=== PATIENT | female | born 1990 | race Caucasian/White ===

== ENCOUNTER 2020-11-11 22:18 | Emergency (ER) | payer BC ==
[2020-11-11] MEDS ORDERED: Zofran 4 MG/2 ML VIAL IV ONE (22:50)
[2020-11-11] MEDS ORDERED: Sodium Chloride 0.9% 1000 ML 1,000 ML IV STA (22:50)
[2020-11-11] MEDS ORDERED: TYLENOL 325 MG PO ONE (22:50)
[2020-11-11] MEDS ORDERED: Sodium Chloride 0.9% 1000 ML 1,000 ML ONE (23:03)
[2020-11-11] MEDS ORDERED: Zofran 4 MG/2 ML VIAL ONE (23:03)
[2020-11-11] MEDS ORDERED: TYLENOL 325 MG ONE (23:03)
[2020-11-11 23:09] LABS: Hematocrit 39.7 % (35-47); Mean Cell Volume 86.1 fl (78-100); Mean Corpuscular Hemoglobin 28.2 pg (26-32); Mean Corpuscular Hgb Concent. 32.7 g/dl (32-36); Mean Platelet Volume 10.6 fl (7.5-11.0); Platelet Count 311 K/mm3 (150-450); Red Blood Count 4.61 M/mm3 (4.1-5.4); Red Cell Distribution Width 12.9 % (11.5-14.0); White Blood Count 14.3 K/mm3 (4.0-10.5)
--- NOTE | 2020-11-11 23:30 | ERPHSYRPT ---
- History of Present Illness Time Seen by Provider: 11/11/20 22:28 Source: patient Exam Limitations: no limitations Patient Subjective Stated Complaint: Patient states " I have been sick for about 5 days and I just can't seem to kick whatever is going on. I live by myself and I'm just concerned. I have been having headaches, vomiting, and have no appetite. [facility] but they didn't really help me and they only swabbed me for COVID-19. I am just concerned at this point why I'm not feeling any better." Triage Nursing Assessment: Patient arrived to ED and ambulated back to room without difficulty. Patient A/O times 4. Patient able to make wants and needs known. Patient able to follow instructions without difficulty. Lungs clear bilateral A/P throughout. Patient denies any SOB. Patient denies any chest pain. Respiratory regular and easy and non-labored. Cap refill < 3 seconds. No S/S of respiratory distress noted. + BS times 4 quads. ABD soft, round, non-distended. Patient denies any pain or discomfort upon palpitations. Patient stated she started vomiting today and her appetite has been nothing last couple of days. Oral mucosa moist, pink. Skin turgor < 3 seconds. Patient complains of having pain in and all over her head. Patient with no dependent edema noted. + Radial and pedal pulses noted bilateral. Patient denies having any diizziness or loose stools. Patient stated she had BM 6 days ago but she also hasn't been eating either. Patient denies any Cardiac HX. Patient with N/V and patient states she has vomitied 6 times today and it is yellow in color. Patient denies vomiting any blood or coffee ground emesis. Central color pale. Patient denies any trauma or injury to head. Patient states she had a fever > 103.0 on Tuesday at home. Patient stated she did go to [facility] this am. Physician History: 30 years old healthy female presented in the ER with 5-day history of off-and-on fever with a T-max of 103.6 few days ago, have been using Tylenol/ibuprofen for symptomatic relief but does not seem to go away. She is complaining of generalized body ache, headache, generalized weakness fatigue. She was seen at urgent care today, Covid testing was done. She also reports multiple episodes of nonprojectile, nonbilious vomiting today without any associated significant abdominal pain. Denies any urinary symptoms. Does not have Covid vaccine yet. Timing/Duration: day(s) (5), gradual onset, worse Fever Severity: moderate Fever Therapy MARINATOR: Ibuprofen, Acetaminophen Associated Symptoms: headache, muscle aches, nausea/vomiting, weakness, No abdominal pain, No chest pain, No confusion, No cough, No shortness of breath, No sore throat Allergies/Adverse Reactions: No Known Drug Allergies Allergy (Unverified 11/11/20 22:30) Home Medications: Dextroamphetamine/Amphetamine [Adderall 20 mg Tablet] 20 mg PO DAILY 11/11/20 [History] Fluoxetine HCl 20 mg [Prozac 20 MG] 20 mg PO DAILY 11/11/20 [History] Hx Tetanus, Diphtheria Vaccination/Date Given: Yes Hx Influenza Vaccination/Date Given: Yes Hx Pneumococcal Vaccination/Date Given: No Immunizations Up to Date: Yes Travel Risk - International Travel Have you traveled outside of the country in past 3 weeks: No - Coronavirus Screening Symptoms: Fever, Vomiting/Diarrhea, Headaches/Body Aches/Fatigue Close contact with a COVID-19 positive Pt in past 14-21 Days: No - Vaccine Status Have you recieved a Covid-19 vaccination: No - Review of Systems Constitutional: Fever, Chills, Fatigue, Weakness Eyes: No Symptoms Ears, Nose, & Throat: No Symptoms Respiratory: No Symptoms Cardiac: No Symptoms Abdominal/Gastrointestinal: Nausea, Vomiting Genitourinary Symptoms: No Symptoms Musculoskeletal: Myalgias Skin: No Symptoms Neurological: Headache Psychological: No Symptoms Endocrine: No Symptoms Hematologic/Lymphatic: No Symptoms Immunological/Allergic: No Symptoms - Past Medical History Pertinent Past Medical History: No Neurological History: No Pertinent History ENT History: No Pertinent History Cardiac History: No Pertinent History Respiratory History: No Pertinent History Endocrine Medical History: No Pertinent History Musculoskeletal History: No Pertinent History GI Medical History: No Pertinent History History: No Pertinent History Psycho-Social History: Attention Deficit Disorder, Depression Female Reproductive Disorders: No Pertinent History - Past Surgical History Past Surgical History: No Neuro Surgical History: No Pertinent History Cardiac: No Pertinent History Respiratory: No Pertinent History Gastrointestinal: No Pertinent History Genitourinary: No Pertinent History Musculoskeletal: No Pertinent History Female Surgical History: No Pertinent History - Social History Smoking Status: Never smoker How long have you smoked: 8 yrs Exposure to second hand smoke: No Drug Use: none Patient Lives Alone: Yes - Female History Hx Now: (unkn) - Nursing Vital Signs Nursing Vital Signs: Initial Vital Signs Temperature 100.9 F 11/11/20 22:28 Pulse Rate 103 H 11/11/20 22:28 Respiratory Rate 20 11/11/20 22:28 Blood Pressure 121/80 11/11/20 22:28 O2 Sat by Pulse Oximetry 96 11/11/20 22:28 Pain Scale Pain Intensity 3 - Physical Exam General Appearance: no apparent distress, alert, anxiety Eye Exam: PERRL/EOMI, eyes nml inspection ENT Exam: no apparent trauma, hearing grossly normal, pharyngeal erythema Neck Exam: normal inspection, non-tender, supple, full range of motion Respiratory Exam: normal breath sounds, chest non-tender, lungs clear Cardiovascular/Chest Exam: normal heart sounds, regular rate/rhythm Gastrointestinal/Abdominal Exam: soft, non tender, no distention, no mass, no guarding Extremity Exam: non-tender, normal range of motion, normal inspection Neurologic Exam: alert, oriented x 3, cooperative, 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 as tested Skin Exam: normal color SpO2 Interpretation: normal SpO2: 97 O2 Delivery: Room Air Ordered Tests: Active Orders 24 hr Category Date Time Status IV Insertion STAT Care 11/11/20 22:50 Active NPO (ED) STAT Care 11/11/20 22:50 Active OBSTR/ACUTE ABDOMEN SERIES Stat Exams 11/11/20 23:13 Taken BLOOD CULTURE Stat Lab 11/11/20 23:06 Received CBC W DIFF Stat Lab 11/11/20 23:04 Completed CMP Stat Lab 11/11/20 23:04 Completed CULTURE,URINE Stat Lab 11/11/20 23:20 Received HCG,QUALITATIVE URINE Stat Lab 11/11/20 23:20 Completed INFLUENZA A+B CARMENZA Stat Lab 11/11/20 23:06 Completed LIPASE Stat Lab 11/11/20 23:04 Completed Lactic Acid Stat Lab 11/11/20 22:50 Completed Manual Differential NC Stat Lab 11/11/20 23:04 Completed UA W/RFX UR CULTURE Stat Lab 11/11/20 23:20 Completed Medication Summary Discontinued Medications Generic Name Dose Route Start Last Admin Trade Name Freq PRN Reason Stop Dose Admin Acetaminophen 975 mg 11/11/20 22:50 11/11/20 23:17 Tylenol 325 Mg PO 11/11/20 22:51 975 mg STAT ONE Administration Acetaminophen Confirm 11/11/20 23:03 Tylenol 325 Mg Administered 11/11/20 23:04 Dose 975 mg .ROUTE .STK-MED ONE Amoxicillin/Clavulanate Potassium 875 mg 11/11/20 23:51 11/11/20 23:58 Augmentin 875-125 Tablet PO 11/11/20 23:52 875 mg STAT ONE Administration Amoxicillin/Clavulanate Potassium Confirm 11/11/20 23:56 Augmentin 875-125 Tablet Administered 11/11/20 23:57 Dose 875 mg .ROUTE .STK-MED ONE Sodium Chloride 1,000 mls @ 999 mls/hr 11/11/20 22:50 11/11/20 23:17 Sodium Chloride 0.9% 1000 Ml IV 11/11/20 23:50 999 mls/hr .Q1H1M STA Administration Sodium Chloride Confirm 11/11/20 23:03 Sodium Chloride 0.9% 1000 Ml Administered 11/11/20 23:04 Dose 1,000 mls @ ud .ROUTE .STK-MED ONE Morphine Sulfate 4 mg 11/12/20 00:08 11/12/20 00:15 Morphine Sulfate 4 Mg Inj IV 11/12/20 00:09 4 mg STAT ONE Administration Morphine Sulfate Confirm 11/12/20 00:14 Morphine Sulfate 4 Mg Inj Administered 11/12/20 00:15 Dose 4 mg .ROUTE .STK-MED ONE Ondansetron HCl 4 mg 11/11/20 22:50 11/11/20 23:17 Zofran 4 Mg/2 Ml Vial IV 11/11/20 22:51 4 mg STAT ONE Administration Ondansetron HCl Confirm 11/11/20 23:03 Zofran 4 Mg/2 Ml Vial Administered 11/11/20 23:04 Dose 4 mg .ROUTE .STK-MED ONE Lab/Rad Data: Laboratory Result Diagrams 11/11/20 23:04 11/11/20 23:04 Laboratory Results 11/11/20 11/11/20 11/11/20 Range/Units 23:20 23:20 23:06 WBC (4.0-10.5) K/mm3 RBC (4.1-5.4) M/mm3 Hgb (12.0-16.0) gm/dl Hct (35-47) % MCV (78-100) fl MCH (26-32) pg MCHC (32-36) g/dl RDW (11.5-14.0) % Plt Count (150-450) K/mm3 MPV (7.5-11.0) fl Segmented Neutrophils (36.0-66.0) % Band Neutrophils (0.0-2.0) % Lymphocytes (Manual) (24-44) % Monocytes (Manual) (0.0-12.0) % Dohle Bodies Platelet Estimate (NORMAL) RBC Morphology Sodium (137-145) mmol/L Potassium (3.5-5.1) mmol/L Chloride (98-107) mmol/L Carbon Dioxide (22-30) mmol/L Anion Gap (5-15) MEQ/L BUN (7-17) mg/dL Creatinine (0.52-1.04) mg/dL Estimated GFR ML/MIN Glucose (74-106) mg/dL Lactic Acid (0.4-2.0) Calcium (8.4-10.2) mg/dL Total Bilirubin (0.2-1.3) mg/dL AST (14-36) U/L ALT (0-35) U/L Alkaline Phosphatase (38-126) U/L Serum Total Protein (6.3-8.2) g/dL Albumin (3.5-5.0) g/dL Lipase (23-300) U/L Urine Color YELLOW (YELLOW) Urine Appearance SLIGHTLY CLOUDY (CLEAR) Urine pH 7.0 (5-6) Ur Specific [place] 1.014 (1.005-1.025) Urine Protein 100 (Negative) Urine Ketones TRACE (NEGATIVE) Urine Blood MODERATE (0-5) Jorge Luis/ul Urine Nitrite POSITIVE (NEGATIVE) Urine Bilirubin NEGATIVE (NEGATIVE) Urine Urobilinogen 4 (0-1) mg/dL Ur Leukocyte Esterase TRACE (NEGATIVE) Urine WBC (Auto) 11-15 (0-5) /HPF Urine RBC (Auto) 16-25 (0-2) /HPF U Epithel Cells (Auto) NONE (FEW) /HPF Urine Bacteria (Auto) MODERATE (NEGATIVE) /HPF Urine Mucus (Auto) SLIGHT (NEGATIVE) /HPF Urine Culture Reflexed YES (NO) Urine Glucose NEGATIVE (NEGATIVE) mg/dL Urine HCG, Qual NEGATIVE (Negative) Influenza Type A Ag (NEGATIVE) Influenza Type B Ag (NEGATIVE) Group A Strep Antibody DETECTED (NEGATIVE) 11/11/20 11/11/20 11/11/20 Range/Units 23:06 23:04 23:04 WBC 14.3 H (4.0-10.5) K/mm3 RBC 4.61 (4.1-5.4) M/mm3 Hgb 13.0 (12.0-16.0) gm/dl Hct 39.7 (35-47) % MCV 86.1 (78-100) fl MCH 28.2 (26-32) pg MCHC 32.7 (32-36) g/dl RDW 12.9 (11.5-14.0) % Plt Count 311 (150-450) K/mm3 MPV 10.6 (7.5-11.0) fl Segmented Neutrophils 54 (36.0-66.0) % Band Neutrophils 30 H (0.0-2.0) % Lymphocytes (Manual) 12 L (24-44) % Monocytes (Manual) 4 (0.0-12.0) % Dohle Bodies 1+ Platelet Estimate NORMAL (NORMAL) RBC Morphology NORMAL Sodium 132 L (137-145) mmol/L Potassium 3.4 L (3.5-5.1) mmol/L Chloride 97 L (98-107) mmol/L Carbon Dioxide 25 (22-30) mmol/L Anion Gap 13.0 (5-15) MEQ/L BUN 6 L (7-17) mg/dL Creatinine 0.67 (0.52-1.04) mg/dL Estimated GFR > 60.0 ML/MIN Glucose 93 (74-106) mg/dL Lactic Acid (0.4-2.0) Calcium 8.8 (8.4-10.2) mg/dL Total Bilirubin 0.60 (0.2-1.3) mg/dL AST 23 (14-36) U/L ALT 36 H (0-35) U/L Alkaline Phosphatase 95 (38-126) U/L Serum Total Protein 7.5 (6.3-8.2) g/dL Albumin 3.9 (3.5-5.0) g/dL Lipase 73 (23-300) U/L Urine Color (YELLOW) Urine Appearance (CLEAR) Urine pH (5-6) Ur Specific [place] (1.005-1.025) Urine Protein (Negative) Urine Ketones (NEGATIVE) Urine Blood (0-5) Jorge Luis/ul Urine Nitrite (NEGATIVE) Urine Bilirubin (NEGATIVE) Urine Urobilinogen (0-1) mg/dL Ur Leukocyte Esterase (NEGATIVE) Urine WBC (Auto) (0-5) /HPF Urine RBC (Auto) (0-2) /HPF U Epithel Cells (Auto) (FEW) /HPF Urine Bacteria (Auto) (NEGATIVE) /HPF Urine Mucus (Auto) (NEGATIVE) /HPF Urine Culture Reflexed (NO) Urine Glucose (NEGATIVE) mg/dL Urine HCG, Qual (Negative) Influenza Type A Ag NEGATIVE (NEGATIVE) Influenza Type B Ag NEGATIVE (NEGATIVE) Group A Strep Antibody (NEGATIVE) 11/11/20 Range/Units 22:50 WBC (4.0-10.5) K/mm3 RBC (4.1-5.4) M/mm3 Hgb (12.0-16.0) gm/dl Hct (35-47) % MCV (78-100) fl MCH (26-32) pg MCHC (32-36) g/dl RDW (11.5-14.0) % Plt Count (150-450) K/mm3 MPV (7.5-11.0) fl Segmented Neutrophils (36.0-66.0) % Band Neutrophils (0.0-2.0) % Lymphocytes (Manual) (24-44) % Monocytes (Manual) (0.0-12.0) % Dohle Bodies Platelet Estimate (NORMAL) RBC Morphology Sodium (137-145) mmol/L Potassium (3.5-5.1) mmol/L Chloride (98-107) mmol/L Carbon Dioxide (22-30) mmol/L Anion Gap (5-15) MEQ/L BUN (7-17) mg/dL Creatinine (0.52-1.04) mg/dL Estimated GFR ML/MIN Glucose (74-106) mg/dL Lactic Acid 1.1 (0.4-2.0) Calcium (8.4-10.2) mg/dL Total Bilirubin (0.2-1.3) mg/dL AST (14-36) U/L ALT (0-35) U/L Alkaline Phosphatase (38-126) U/L Serum Total Protein (6.3-8.2) g/dL Albumin (3.5-5.0) g/dL Lipase (23-300) U/L Urine Color (YELLOW) Urine Appearance (CLEAR) Urine pH (5-6) Ur Specific [place] (1.005-1.025) Urine Protein (Negative) Urine Ketones (NEGATIVE) Urine Blood (0-5) Jorge Luis/ul Urine Nitrite (NEGATIVE) Urine Bilirubin (NEGATIVE) Urine Urobilinogen (0-1) mg/dL Ur Leukocyte Esterase (NEGATIVE) Urine WBC (Auto) (0-5) /HPF Urine RBC (Auto) (0-2) /HPF U Epithel Cells (Auto) (FEW) /HPF Urine Bacteria (Auto) (NEGATIVE) /HPF Urine Mucus (Auto) (NEGATIVE) /HPF Urine Culture Reflexed (NO) Urine Glucose (NEGATIVE) mg/dL Urine HCG, Qual (Negative) Influenza Type A Ag (NEGATIVE) Influenza Type B Ag (NEGATIVE) Group A Strep Antibody (NEGATIVE) - Progress Progress: improved, re-examined Progress Note: 11/12/20 00:42 Given fluid bolus and Zofran along with morphine, on reevaluation feeling much better. She has a white count of 14, mildly low sodium and chloride. No definitive UTI. She does have positive strep throat given Augmentin. We will continue with Augmentin and Zofran to go home. Elevated white count could be reactive from vomiting. X-rays did not show any acute findings in the chest and abdomen but does have constipation. Recommended stool softener. Discussed signs symptoms of worsening needing return to ER which he seems understanding. Stable for discharge. Counseled pt/family regarding: lab results, diagnosis, need for follow-up, rad results - Departure Departure Disposition: Home Clinical Impression: Acute streptococcal pharyngitis Nausea & vomiting Qualifiers: Vomiting type: unspecified Vomiting Intractability: non-intractable Qualified Code(s): R11.2 - Nausea with vomiting, unspecified Constipation Qualifiers: Constipation type: unspecified constipation type Qualified Code(s): K59.00 - Constipation, unspecified Condition: Stable Critical Care Time: No Referrals: ROSEMARY DEL TORO NP [Primary Care Provider] - (1-2 days for reevaluation) Instructions: Nausea and Vomiting, Adult (DC) Additional Instructions: Use MiraLAX/stool softener. Use Tylenol/ibuprofen as needed. Take Zofran as needed for nausea vomiting. Continue with Augmentin. Contact/droplet precautions until your Covid test is back. Follow-up with primary care physician for reevaluation. Return to ER for any worsening. Prescriptions: Ondansetron ODT 4 MG [Zofran Odt 4 mg] 4 mg PO Q6H PRN PRN #10 tab.rapdis PRN Reason: Vomiting Amox Tr/Potass Clav. 875 mg [Augmentin 875-125 Tablet] 875 mg PO BID 10 Days #19 tablet
[2020-11-11 23:37] LABS: INFLUENZA A NEGATIVE (NEGATIVE); INFLUENZA B NEGATIVE (NEGATIVE)
[2020-11-11 23:45] LABS: ALBUMIN 3.9 g/dL (3.5-5.0); ALKALINE PHOSPHATASE 95 U/L (38-126); BLOOD UREA NITROGEN 6 mg/dL (7-17); CHLORIDE 97 mmol/L (98-107); Calcium 8.8 mg/dL (8.4-10.2); Carbon Dioxide 25 mmol/L (22-30); Creatinine 1 0.67 mg/dL (0.52-1.04); EST GLOMERULAR FILTRATION RATE > 60.0 ML/MIN; Glucose 93 mg/dL (74-106); LIPASE 73 U/L (23-300); Potassium 3.4 mmol/L (3.5-5.1); SGOT/AST 23 U/L (14-36); SGPT/ALT 36 U/L (0-35); SODIUM 132 mmol/L (137-145); Total Protein 7.5 g/dL (6.3-8.2)
[2020-11-11 23:47] LABS: Appearance SLIGHTLY CLOUDY (CLEAR); Bacteria MODERATE /HPF (NEGATIVE); Bilirubin NEGATIVE (NEGATIVE); Blood MODERATE Ery/ul (0-5); Glucose NEGATIVE (NEGATIVE); Ketones TRACE (NEGATIVE); Leukocyte Esterase TRACE (NEGATIVE); Mucus SLIGHT /HPF (NEGATIVE); Nitrite POSITIVE (NEGATIVE); Protein,Urine Dip 100 (Negative); Specific Gravity 1.014 (1.005-1.025); Urobilinogen 4 mg/dL (0-1)
[2020-11-11] MEDS ORDERED: Augmentin 875-125 Tablet PO ONE (23:51)
[2020-11-11] MEDS ORDERED: Augmentin 875-125 Tablet ONE (23:56)
[2020-11-12] MEDS ORDERED: MORPHINE SULFATE 4 MG INJ IV ONE (00:08)
[2020-11-12] MEDS ORDERED: MORPHINE SULFATE 4 MG INJ ONE (00:14)
[2020-11-12 00:25] VITALS: BP 120/83; PULSE 90
[2020-11-12 00:31] LABS: BAND 30 % (0.0-2.0); Dohle Bodies 1+; Lymphocytes 12 % (24-44); Monocyte 4 % (0.0-12.0); Neutrophils 54 % (36.0-66.0); Platelet Estimate NORMAL (NORMAL); Total Cells Counted 100
[2020-11-12 00:45] VITALS: O2SAT 97
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
== END 2020-11-12 00:52 | disposition home or self-care (01) ==
LOC: ED 22:18
DX: J02.0 Streptococcal pharyngitis (principal); R11.2 Nausea with vomiting, unspecified; K59.00 Constipation, unspecified
CPT/HCPCS: 36000; 36415; 74022; 80053; 81001; 83605; 83690; 84703; 85025; 87040; 87077; 87086; 87186; 87400; 87651; 96360; 96374; 96375; 99284; J2270; J2405; A9270-GY

== ENCOUNTER 2022-09-25 01:20 | Emergency (ER) | payer OTHER ==
[2022-09-25] MEDS ORDERED: Adacel Vial IM ONE (02:01)
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
== END 2022-09-25 04:30 | disposition home or self-care (01) ==
LOC: ED 01:20
DX: S00.83XA Contusion of other part of head, initial encounter (principal); X37.1XXA Tornado, initial encounter; S80.212A Abrasion, left knee, initial encounter; R07.89 Other chest pain; M79.671 Pain in right foot
CPT/HCPCS: 36415; 70450; 71045; 73610; 73630; 84703; 90471; 90715; 99285

== ENCOUNTER 2024-01-13 05:59 | Day surgery (SDC) | payer OTHER ==
[2024-01-13 06:29] VITALS: RESP 16
[2024-01-13] MEDS ORDERED: Lactated Ringers 1,000 ML IV ONE (06:34)
[2024-01-13] MEDS ORDERED: Pepcid 20 MG VIAL IV ONE (06:34)
[2024-01-13] MEDS ORDERED: Reglan 10 MG/2 ML ONE (06:34)
[2024-01-13] MEDS: Lactated Ringers 1,000 ML IV SCH (06:39)
[2024-01-13] MEDS: Reglan 10 MG/2 ML IV ONE (06:40)
[2024-01-13] MEDS: Pepcid 20 MG VIAL IV ONE (06:40)
[2024-01-13] MEDS ORDERED: KEFZOL 1 GM/50 ML PREMIX** 1 GM/50 ML IVPB IV ONE (07:10)
[2024-01-13] MEDS: KEFZOL 1 GM/50 ML PREMIX** 1 GM/50 ML IVPB IV SCH (07:10)
[2024-01-13] MEDS ORDERED: Versed 2 MG/2 ML Injection ONE (07:45)
[2024-01-13] MEDS: Versed 2 MG/2 ML Injection IV PRN (07:47)
[2024-01-13] MEDS ORDERED: DIPRIVAN 200 MG/20 ML IV ONE (07:54)
[2024-01-13] MEDS ORDERED: SUBLIMAZE 100 MCG/2 ML ONE (07:55)
[2024-01-13] MEDS ORDERED: Decadron 4 MG INJ ONE (07:55)
[2024-01-13] MEDS ORDERED: Xylocaine-Mpf 2% 5 Ml Vial ONE (07:55)
[2024-01-13] MEDS ORDERED: Zofran 4 MG/2 ML VIAL ONE (07:55)
[2024-01-13] MEDS ORDERED: TORAdol 30 mg Injection ONE (09:04)
[2024-01-13 09:35] VITALS: TEMP 97.5
[2024-01-13 09:50] VITALS: BP 129/83; PULSE 79; O2SAT 99
--- NOTE | 2024-01-16 20:32 | OP ---
SURGERY DATE/TIME: 01/13/2024 0789 - 2047 PREOPERATIVE DIAGNOSIS: Missed at approximately 6 weeks gestation. POSTOPERATIVE DIAGNOSIS: Missed at approximately 6 weeks. PROCEDURE: Suction dilation and curettage. SURGEON: Juliano Milton D.O. ROSE GROWER: Angela. ANESTHESIA: General. QUANTITATIVE BLOOD LOSS: Minimal. COMPLICATIONS: None. FINDINGS: The risks, benefits, indications, and alternatives of the procedure were reviewed with the patient prior to the procedure. Patient understood the risk of infection, bleeding, bowel injury, bladder injury, uterine perforation, pelvic infection, thromboembolic disorder associated with the surgery and desires to have the surgery as a possible means to alleviate her current medical condition. DESCRIPTION OF PROCEDURE AND FINDINGS: At this point, patient was taken to the operating room, given general sedation, placed in the dorsal lithotomy position, prepped and draped in the usual sterile fashion. A weighted speculum was then placed in the patient's vagina, and the anterior lip of the cervix was grasped with a single tooth tenaculum. Endocervical dilators were advanced through the endocervical canal as a means to dilate the cervix. A #7 curved Vacurette was then placed through the endocervical region toward the fundal region where the suction machine was turned on and suctioning of the uterine contents was taken place, retrieving a moderate amount of endometrial tissue and products of conception. From this point, the instrument was removed after complete suctioning and a curette was then subsequently placed into the uterine fundus where curettage is performed in all quadrants of the uterus removing the remainder amount of tissue. From this point, hemostasis was obtained. At this point, all instruments were removed from the patient's vaginal region. The patient was then taken out of the dorsal lithotomy position, was taken out of anesthesia, was then taken to the recovery room in stable condition. All instruments and laps were accounted for x2.
== END 2024-01-13 10:05 | disposition home or self-care (01) ==
LOC: SDC 05:59
PROVIDERS: ATTEND Obstetrics & Gynecology
DX: O02.1 Missed abortion (principal)
CPT/HCPCS: 36415; 86901; J0690; J1100; J1885; J2250; J2405; J2704; J3010

== ENCOUNTER 2024-04-19 08:04 | Emergency (ER) | payer OTHER ==
[2024-04-19 08:26] VITALS: TEMP 97.7
--- NOTE | 2024-04-19 08:26 | ERPHSYRPT ---
- History of Present Illness Time Seen by Provider: 04/19/24 08:11 Historian: patient Exam Limitations: no limitations Physician History: Patient's had intermittent right back pain over the last 1 month, worse over the past 1 day. The pain radiates to the right groin area. She describes pain as sharp and squeezing at times. She was seen by urology yesterday who set her up for an outpatient cystoscope to look for blood in her urine she has had over the last 2 months. She has had a passed kidney stone she states her symptoms feel very similar to this, but had a CAT scan 1 month ago with the start of this round of symptoms that was negative that time for CAT scan. Patient denies any new vomiting, fever, localized abdominal pain, chest pain, shortness of breath, black or red stools, or numbness or tingling or weakness in her legs, and denies any numbness from the area she states upon and has not had any new injuries or overuse activities to her back. Timing/Duration: intermittent, sudden, worse (Over the past 1 day) Activities at Onset: none Quality: aching, cramping, stabbing Abdominal Pain Onset Location: flank (Right) Pain Radiation: groin Severity of Pain-Max: severe Severity of Pain-Current: mild Modifying Factors: Improves With: nothing Associated Symptoms: back, nausea, No chest pain, No diaphoresis, No diarrhea, No fever/chills, No fatigue, No headache, No heartburn, No loss of appetite, No neck pain, No rash, No shortness of breath, No syncope, No vomiting, No weakness Previous symptoms: same symptoms as today (History of kidney stones with similar feeling symptoms), recently seen (Evaluated yesterday by urology, in the emergency room 1 month ago) Allergies/Adverse Reactions: No Known Drug Allergies Allergy (Verified 04/19/24 08:16) Home Medications: Dextroamphetamine/Amphetamine [Adderall 20 mg Tablet] 20 mg PO BID 11/11/20 [History] Lisinopril 10 mg [Zestril 10 MG] 10 mg PO DAILY 04/19/24 [History] Hx Tetanus, Diphtheria Vaccination/Date Given: Yes Hx Influenza Vaccination/Date Given: Yes Hx Pneumococcal Vaccination/Date Given: No Travel Risk - Emerging Infectious Disease Are you exhibiting symptoms associated with any current EIDs: No - Review of Systems Constitutional: No Fever, No Chills Eyes: No Symptoms Ears, Nose, & Throat: No Symptoms Respiratory: No Cough, No Dyspnea Cardiac: No Chest Pain, No Edema, No Syncope Abdominal/Gastrointestinal: No Abdominal Pain, No Nausea, No Vomiting, No Diar isaias Genitourinary Symptoms: Flank Pain, No Dysuria, No Frequency, No Hematuria, No , No Vaginal Bleeding, No Vaginal Discharge Musculoskeletal: No Back Pain, No Neck Pain Skin: No Rash Neurological: No Dizziness, No Focal Weakness, No Sensory Changes Psychological: No Symptoms Endocrine: No Symptoms All Other Systems: Reviewed and Negative - Past Medical History Pertinent Past Medical History: No Neurological History: No Pertinent History ENT History: No Pertinent History Cardiac History: No Pertinent History Respiratory History: No Pertinent History Endocrine Medical History: No Pertinent History Musculoskeletal History: No Pertinent History GI Medical History: No Pertinent History History: No Pertinent History Psycho-Social History: Attention Deficit Disorder, Depression Female Reproductive Disorders: No Pertinent History - Past Surgical History Past Surgical History: No Neuro Surgical History: No Pertinent History Cardiac: No Pertinent History Respiratory: No Pertinent History Gastrointestinal: No Pertinent History Genitourinary: No Pertinent History Musculoskeletal: No Pertinent History Female Surgical History: No Pertinent History - Female History Hx Now: No - Social History Smoking Status: Current every day smoker How long have you smoked: 8 yrs Exposure to second hand smoke: No Drug Use: none Patient Lives Alone: Yes - Nursing Vital Signs Nursing Vital Signs: Initial Vital Signs Temperature 97.7 F 04/19/24 08:10 Pulse Rate 92 H 04/19/24 08:10 Respiratory Rate 17 04/19/24 08:10 Blood Pressure 130/97 04/19/24 08:10 O2 Sat by Pulse Oximetry 99 04/19/24 08:10 Pain Scale Pain Intensity 8 - Physical Exam General Appearance: no apparent distress, alert Eye Exam: PERRL/EOMI, eyes nml inspection Ears, Nose, Throat Exam: normal ENT inspection, pharynx normal, moist mucous membranes Neck Exam: normal inspection, non-tender, supple, full range of motion Respiratory Exam: normal breath sounds, lungs clear, No respiratory distress Cardiovascular Exam: regular rate/rhythm, normal heart sounds, normal peripheral pulses, capillary refill <2 sec Gastrointestinal/Abdomen Exam: soft, normal bowel sounds, No tenderness, No mass, No guarding, No rebound, No hernia Back Exam: normal inspection, normal range of motion, No CVA tenderness, No vertebral tenderness Extremity Exam: normal inspection, normal range of motion, pelvis stable Neurologic Exam: alert, oriented x 3, cooperative, normal mood/affect, nml cerebellar function, sensation nml, No motor deficits Skin Exam: normal color, warm, dry, No rash, No cyanosis, No jaundice SpO2 Interpretation: normal O2 Delivery: Room Air - CT Exams Abdomen/Pelvis CT Interpretation: Other (New 7 to 8 mm right UPJ calculus producing obstructive uropathy with now mild renal edema and moderate hydronephrosis. Also 3 to 4 mm nonobstructing left UPJ calculus and a few bilateral petechial renal calculi. Calculi not well-seen on previous contrast exam on March 02, 2024. Mild diffuse fa) Ordered Tests: Active Orders 24 hr Category Date Time Status IV Insertion STAT Care 04/19/24 08:21 Active ABDOMEN AND PELVIS W/0 CONTRAS [CT] Stat Exams 04/19/24 08:21 Completed CBC W DIFF Stat Lab 04/19/24 08:44 Completed CMP Stat Lab 04/19/24 08:44 Completed CULTURE,URINE Stat Lab 04/19/24 08:21 Received HCG QUALITATIVE, URINE Stat Lab 04/19/24 08:44 Completed LIPASE Stat Lab 04/19/24 08:44 Completed Lactic Acid Stat Lab 04/19/24 08:45 Completed PROTIME WITH INR Stat Lab 04/19/24 08:44 Completed UA W/RFX UR CULTURE Stat Lab 04/19/24 08:21 Completed Urine Triage Profile Stat Lab 04/19/24 08:45 Completed Medication Summary Discontinued Medications Generic Name Dose Route Start Last Admin Trade Name Freq PRN Reason Stop Dose Admin Ketorolac Tromethamine 15 mg 04/19/24 09:24 04/19/24 09:27 Ketorolac Tromethamine 30 Mg/Ml Inj IV 04/19/24 09:25 15 mg STAT ONE Administration Ketorolac Tromethamine Confirm 04/19/24 09:26 Ketorolac Tromethamine 30 Mg/Ml Inj Administered 04/19/24 09:27 Dose 30 mg .ROUTE .STK-MED ONE Ondansetron HCl 4 mg 04/19/24 09:24 04/19/24 09:28 Ondansetron Hcl 4 Mg/2 Ml Vial IV 04/19/24 09:25 4 mg STAT ONE Administration Ondansetron HCl Confirm 04/19/24 09:27 Ondansetron Hcl 4 Mg/2 Ml Vial Administered 04/19/24 09:28 Dose 4 mg .ROUTE .STK-MED ONE Lab/Rad Data: Laboratory Result Diagrams 04/19/24 08:44 04/19/24 08:44 Laboratory Results 04/19/24 04/19/24 04/19/24 Range/Units 08:45 08:45 08:44 WBC (3.98-10.04) x10^3/uL RBC (3.93-5.22) x10^6/uL Hgb (11.2-15.7) g/dL Hct (34.1-44.9) % MCV (79.4-94.8) fL MCH (25.6-32.2) pg MCHC (32.2-35.5) g/dL RDW (11.7-14.4) % Plt Count (182-369) x10^3/uL MPV (9.4-12.3) fL Gran % (34.0-71.1) % Immature Gran % (Auto) (0.001-0.429) % Nucleat RBC Rel Count (0.00-0.2) % Eos # (Auto) (0.04-0.36) x10^3/uL Immature Gran # (Auto) (0.001-0.031) x10^3u/L Absolute Lymphs (auto) (1.18-3.74) x10^3/uL Absolute Monos (auto) (0.24-0.86) x10^3/uL Absolute Nucleated RBC (0.00-0.012) x10^3u/L Lymphocytes % (19.3-51.7) % Monocytes % (4.7-12.5) % Eosinophils % (0.7-5.8) % Basophils % (0.1-1.2) % Absolute Granulocytes (1.56-6.13) x10^3/uL Basophils # (0.01-0.08) x10^3/uL PT (9.4-12.5) SECONDS INR (0.8-3.0) Sodium (135-145) mmol/L Potassium (3.5-5.1) mmol/L Chloride (98-107) mmol/L Carbon Dioxide (22-30) mmol/L Anion Gap (5-15) MEQ/L BUN (7-17) mg/dL Creatinine (0.52-1.04) mg/dL Estimated GFR ML/MIN Glucose (74-106) mg/dL Lactic Acid 1.5 (0.4-2.0) Calcium (8.4-10.2) mg/dL Total Bilirubin (0.2-1.3) mg/dL AST (14-36) U/L ALT (0-35) U/L Alkaline Phosphatase (38-126) U/L Serum Total Protein (6.3-8.2) g/dL Albumin (3.5-5.0) g/dL Lipase (23-300) U/L Urine Color (Yellow) Urine Appearance (Clear) Urine pH (4.6-8.0) Ur Specific [place] (1.005-1.030) Urine Protein (Negative) Urine Glucose (UA) (Negative) mg/dL Urine Ketones (Negative) Urine Blood (Negative) Urine Nitrite (Negative) Urine Bilirubin (Negative) Urine Urobilinogen (0.2) mg/dL Ur Leukocyte Esterase (Negative) U Hyaline Cast (Auto) (0-2) /LPF Urine Microscopic RBC (0-5) /HPF Urine Microscopic WBC (0-5) /HPF Ur Epithelial Cells (None Seen) /HPF Urine Bacteria (None Seen) /HPF Urine Culture Reflexed (NO) Urine HCG, Qual NEGATIVE (NEGATIVE) Urine Opiates Level NEGATIVE (NEGATIVE) Ur Methadone NEGATIVE (NEGATIVE) Urine Barbiturates NEGATIVE (NEGATIVE) Ur Phencyclidine (PCP) NEGATIVE (NEGATIVE) Urine Amphetamine POSITIVE A (NEGATIVE) U Benzodiazepine Level NEGATIVE (NEGATIVE) Urine Cocaine NEGATIVE (NEGATIVE) Urine Marijuana (THC) POSITIVE A (NEGATIVE) 04/19/24 04/19/24 04/19/24 Range/Units 08:44 08:44 08:44 WBC 10.0 (3.98-10.04) x10^3/uL RBC 4.58 (3.93-5.22) x10^6/uL Hgb 13.3 (11.2-15.7) g/dL Hct 39.7 (34.1-44.9) % MCV 86.7 (79.4-94.8) fL MCH 29.0 (25.6-32.2) pg MCHC 33.5 (32.2-35.5) g/dL RDW 12.5 (11.7-14.4) % Plt Count 259 (182-369) x10^3/uL MPV 10.7 (9.4-12.3) fL Gran % 72.0 H (34.0-71.1) % Immature Gran % (Auto) 0.6 H (0.001-0.429) % Nucleat RBC Rel Count 0.0 (0.00-0.2) % Eos # (Auto) 0.20 (0.04-0.36) x10^3/uL Immature Gran # (Auto) 0.06 H (0.001-0.031) x10^3u/L Absolute Lymphs (auto) 1.55 (1.18-3.74) x10^3/uL Absolute Monos (auto) 0.94 H (0.24-0.86) x10^3/uL Absolute Nucleated RBC 0.00 (0.00-0.012) x10^3u/L Lymphocytes % 15.5 L (19.3-51.7) % Monocytes % 9.4 (4.7-12.5) % Eosinophils % 2.0 (0.7-5.8) % Basophils % 0.5 (0.1-1.2) % Absolute Granulocytes 7.18 H (1.56-6.13) x10^3/uL Basophils # 0.05 (0.01-0.08) x10^3/uL PT 10.3 (9.4-12.5) SECONDS INR 0.94 (0.8-3.0) Sodium 140 (135-145) mmol/L Potassium 4.3 (3.5-5.1) mmol/L Chloride 108 H (98-107) mmol/L Carbon Dioxide 18 L (22-30) mmol/L Anion Gap 18.3 H (5-15) MEQ/L BUN 14 (7-17) mg/dL Creatinine 0.88 (0.52-1.04) mg/dL Estimated GFR 87.8 ML/MIN Glucose 99 (74-106) mg/dL Lactic Acid (0.4-2.0) Calcium 9.3 (8.4-10.2) mg/dL Total Bilirubin 0.70 (0.2-1.3) mg/dL AST 32 (14-36) U/L ALT 37 H (0-35) U/L Alkaline Phosphatase 90 (38-126) U/L Serum Total Protein 7.8 (6.3-8.2) g/dL Albumin 4.4 (3.5-5.0) g/dL Lipase 104 (23-300) U/L Urine Color (Yellow) Urine Appearance (Clear) Urine pH (4.6-8.0) Ur Specific [place] (1.005-1.030) Urine Protein (Negative) Urine Glucose (UA) (Negative) mg/dL Urine Ketones (Negative) Urine Blood (Negative) Urine Nitrite (Negative) Urine Bilirubin (Negative) Urine Urobilinogen (0.2) mg/dL Ur Leukocyte Esterase (Negative) U Hyaline Cast (Auto) (0-2) /LPF Urine Microscopic RBC (0-5) /HPF Urine Microscopic WBC (0-5) /HPF Ur Epithelial Cells (None Seen) /HPF Urine Bacteria (None Seen) /HPF Urine Culture Reflexed (NO) Urine HCG, Qual (NEGATIVE) Urine Opiates Level (NEGATIVE) Ur Methadone (NEGATIVE) Urine Barbiturates (NEGATIVE) Ur Phencyclidine (PCP) (NEGATIVE) Urine Amphetamine (NEGATIVE) U Benzodiazepine Level (NEGATIVE) Urine Cocaine (NEGATIVE) Urine Marijuana (THC) (NEGATIVE) 04/19/24 Range/Units 08:21 WBC (3.98-10.04) x10^3/uL RBC (3.93-5.22) x10^6/uL Hgb (11.2-15.7) g/dL Hct (34.1-44.9) % MCV (79.4-94.8) fL MCH (25.6-32.2) pg MCHC (32.2-35.5) g/dL RDW (11.7-14.4) % Plt Count (182-369) x10^3/uL MPV (9.4-12.3) fL Gran % (34.0-71.1) % Immature Gran % (Auto) (0.001-0.429) % Nucleat RBC Rel Count (0.00-0.2) % Eos # (Auto) (0.04-0.36) x10^3/uL Immature Gran # (Auto) (0.001-0.031) x10^3u/L Absolute Lymphs (auto) (1.18-3.74) x10^3/uL Absolute Monos (auto) (0.24-0.86) x10^3/uL Absolute Nucleated RBC (0.00-0.012) x10^3u/L Lymphocytes % (19.3-51.7) % Monocytes % (4.7-12.5) % Eosinophils % (0.7-5.8) % Basophils % (0.1-1.2) % Absolute Granulocytes (1.56-6.13) x10^3/uL Basophils # (0.01-0.08) x10^3/uL PT (9.4-12.5) SECONDS INR (0.8-3.0) Sodium (135-145) mmol/L Potassium (3.5-5.1) mmol/L Chloride (98-107) mmol/L Carbon Dioxide (22-30) mmol/L Anion Gap (5-15) MEQ/L BUN (7-17) mg/dL Creatinine (0.52-1.04) mg/dL Estimated GFR ML/MIN Glucose (74-106) mg/dL Lactic Acid (0.4-2.0) Calcium (8.4-10.2) mg/dL Total Bilirubin (0.2-1.3) mg/dL AST (14-36) U/L ALT (0-35) U/L Alkaline Phosphatase (38-126) U/L Serum Total Protein (6.3-8.2) g/dL Albumin (3.5-5.0) g/dL Lipase (23-300) U/L Urine Color Yellow (Yellow) Urine Appearance Cloudy A (Clear) Urine pH 5.5 (4.6-8.0) Ur Specific [place] 1.020 (1.005-1.030) Urine Protein Trace A (Negative) Urine Glucose (UA) Negative (Negative) mg/dL Urine Ketones Negative (Negative) Urine Blood Large A (Negative) Urine Nitrite Negative (Negative) Urine Bilirubin Negative (Negative) Urine Urobilinogen 0.2 (0.2) mg/dL Ur Leukocyte Esterase Trace A (Negative) U Hyaline Cast (Auto) 3-5 A (0-2) /LPF Urine Microscopic RBC >100 A (0-5) /HPF Urine Microscopic WBC 6-10 A (0-5) /HPF Ur Epithelial Cells Few (None Seen) /HPF Urine Bacteria Few A (None Seen) /HPF Urine Culture Reflexed ORDERED SEPARATELY (NO) Urine HCG, Qual (NEGATIVE) Urine Opiates Level (NEGATIVE) Ur Methadone (NEGATIVE) Urine Barbiturates (NEGATIVE) Ur Phencyclidine (PCP) (NEGATIVE) Urine Amphetamine (NEGATIVE) U Benzodiazepine Level (NEGATIVE) Urine Cocaine (NEGATIVE) Urine Marijuana (THC) (NEGATIVE) - Progress Progress: improved Progress Note: 04/19/24 10:00 Patient is feeling better with the Toradol and Zofran, and I reviewed her lab work, urine results and her CT scan result with no signs of an 8 mm stone on the right side most likely causing her symptoms 04/19/24 10:04 Patient is a 34-year-old female with a history of past kidney stones comes in with worsening right flank pain over the past 1 day after having symptoms over the last month and reviewing her chart most likely her last 6.5 weeks. In reviewing her chart, she had a CT with contrast on March 02, 2024, which most likely did not show the stones that were causing her symptoms at that time, as today she was found to have 70 right UPJ calculus causing obstructive uropathy as well as incidental left-sided 3 to 4 mm nonobstructing left UPJ calculus as well as bilateral renal micro calculi and an incidental fatty liver. Patient had no other concerning lab work findings on CBC, CMP, lipase and lactic acid and urinalysis had blood and small moderate protein which is consistent with her kidney stone, so at this time her urine will be sent for culture, and she will be sent home with Percocet for pain control, Zofran for nausea relief, as well as Flomax take once daily and she does have establishment with a urologist, Dr. Caldwell, who she is to call today and let the urology office know that she had a CT scan that showed kidney stone so they may want to see her before her visit on May 07, 2024 that she has scheduled for cystoscopy. Patient is return back to the nearest emergency room she has any new actable vomiting, new uncontrollable pain, new fever, new inability urinate, new abdominal pain, new back pain, new flank pain, chest pain, new syncopal events, or any other concerning signs or symptoms that were not present at today's emergency room visit for immediate reevaluation in the nearest emergency department Counseled pt/family regarding: lab results, diagnosis, need for follow-up, rad results Medical Desision Making - Diagnostic Testing Radiological Interpretation: Teleradiologist Report Diagnostic Testing (additional info): Blood work and urinalysis - Risk of complications The pt has a mod risk of morbidity or mortality based on: Need for prescription drug management - Departure Departure Disposition: Home Clinical Impression: Right flank pain, Ureterolithiasis, Obstructive uropathy, Fatty liver, Nephrolithiasis Condition: Good Critical Care Time: No Referrals: [facility] [Primary Care Provider] - Follow up with PCP 4 days Instructions: Kidney Stones (DC), Flank Pain, Metabolic dysfunction-associated steatotic liver disease Additional Instructions: Return back to the nearest emergency room for any new fever, worsening back or abdominal pain, new type abdominal pain, new inability not able to urinate, new nausea and vomiting, new uncontrollable pain, new chest pain, new shortness of breath, new fainting spells or any other concerning signs or symptoms that were not present at today's emergency room visit for immediate reevaluation in the nearest emergency department Prescriptions: Oxycodone HCl/Acetaminophen [Percocet 5-325 mg Tablet] 1 each PO Q6H PRN PRN 3 Days #12 tablet MDD 4 PRN Reason: Pain Ondansetron ODT 4 MG [Zofran Odt 4 mg] 4 mg PO Q8H PRN PRN #10 tablet PRN Reason: Nausea Tamsulosin HCl 0.4 mg [Flomax 0.4 MG] 0.4 mg PO DAILY #7 cap
[2024-04-19 08:47] LABS: Absolute Neutrophil Ct (ANC) 7.18 x10^3/uL (1.56-6.13); BASOPHIL % 0.5 % (0.1-1.2); Basophil (Absolute #) 0.05 x10^3/uL (0.01-0.08); Hematocrit 39.7 % (34.1-44.9); Hemoglobin 13.3 g/dL (11.2-15.7); IMMATURE GRAN # 0.06 x10^3u/L (0.001-0.031); IMMATURE GRAN % 0.6 % (0.001-0.429); Lymphocyte (Absolute #) 1.55 x10^3/uL (1.18-3.74); Lymphocytes % 15.5 % (19.3-51.7); Mean Cell Volume 86.7 fL (79.4-94.8); Mean Corpuscular Hgb Concent. 33.5 g/dL (32.2-35.5); Mean Platelet Volume 10.7 fL (9.4-12.3); Monocyte (Absolute #) 0.94 x10^3/uL (0.24-0.86); Monocytes % 9.4 % (4.7-12.5); Platelet Count 259 x10^3/uL (182-369); Red Blood Count 4.58 x10^6/uL (3.93-5.22); Red Cell Distribution Width 12.5 % (11.7-14.4)
[2024-04-19 08:53] LABS: HCG URINE TEST NEGATIVE (NEGATIVE)
[2024-04-19 08:54] LABS: Appearance Cloudy (Clear); Bacteria Few /HPF (None Seen); Bilirubin Negative (Negative); Blood Large (Negative); Epithelial Cells Few /HPF (None Seen); Glucose, Urine Negative (Negative); Ketones Negative (Negative); Leukocyte Esterase Trace (Negative); Nitrite Negative (Negative); Ph 5.5 (4.6-8.0); Protein,Urine Dip Trace (Negative); RBC >100 /HPF (0-5); Urobilinogen 0.2 mg/dL (0.2)
[2024-04-19 09:01] LABS: ALBUMIN 4.4 g/dL (3.5-5.0); ANION GAP 18.3 MEQ/L (5-15); BILIRUBIN,TOTAL 0.7 mg/dL (0.2-1.3); Calcium 9.3 mg/dL (8.4-10.2); Creatinine 1 0.88 mg/dL (0.52-1.04); EST GLOMERULAR FILTRATION RATE 87.8 ML/MIN; INR 0.94 (0.8-3.0); PROTIME 10.3 SECONDS (9.4-12.5); Potassium 4.3 mmol/L (3.5-5.1); Total Protein 7.8 g/dL (6.3-8.2)
[2024-04-19 09:14] LABS: Amphetamine,Urine POSITIVE (NEGATIVE); Barbiturate,Urine NEGATIVE (NEGATIVE); Benzodiazepine,Urine NEGATIVE (NEGATIVE); Cocaine,Urine NEGATIVE (NEGATIVE); Methadone,Urine NEGATIVE (NEGATIVE); Opiate,Urine NEGATIVE (NEGATIVE); PCP,Urine NEGATIVE (NEGATIVE); THC,Urine POSITIVE (NEGATIVE)
[2024-04-19 09:21] VITALS: O2SAT 95
[2024-04-19] MEDS ORDERED: TORAdol 30 mg Injection ONE (09:26)
[2024-04-19] MEDS: TORAdol 30 mg Injection IV ONE (09:27)
[2024-04-19] MEDS ORDERED: Zofran 4 MG/2 ML VIAL ONE (09:27)
[2024-04-19] MEDS: Zofran 4 MG/2 ML VIAL IV ONE (09:28)
--- NOTE | 2024-04-19 09:50 | XRAY ---
Indication: Right flank pain. Multiple contiguous axial images obtained through the abdomen and pelvis without contrast. Comparison: March 02, 2024 Lung bases remain clear again with incidental right base calcified granuloma. Heart not enlarged. Noncontrasted stomach and bowel loops nonobstructed again with normal appendix. There is now 7-8mm right UPJ calculus with now mild renal edema and moderate hydronephrosis favoring obstructive uropathy. Also 3-4 mm nonobstructing left UPJ calculus and a few bilateral petechial renal calculi. Calculi not well seen on previous contrast exam. Mild diffuse fatty liver. No free fluid/air. Remaining liver, gallbladder, pancreas, spleen, adrenal glands, urinary bladder, uterus, and aorta are unremarkable for noncontrast exam. Impression: 1. New finding 7-8 mm right UPJ calculus producing obstructive uropathy as detailed. Additional bilateral renal micro-calculi. 2. Incidental fatty liver.
[2024-04-19 10:11] VITALS: BP 131/98; PULSE 68; RESP 16
== END 2024-04-19 10:19 | disposition home or self-care (01) ==
LOC: ED 08:04
DX: N13.2 Hydronephrosis with renal and ureteral calculous obstruction (principal); N13.9 Obstructive and reflux uropathy, unspecified; R10.9 Unspecified abdominal pain; K76.0 Fatty (change of) liver, not elsewhere classified; Z79.891 Long term (current) use of opiate analgesic; Z79.899 Other long term (current) drug therapy; Z72.0 Tobacco use
CPT/HCPCS: 36000; 36415; 74176; 80053; 80307; 81001; 81025; 83605; 83690; 85025; 85610; 87086; 96374; 96375; 99284; J1885; J2405

== ENCOUNTER 2025-06-02 07:51 | Inpatient (IN) | payer OTHER ==
[2025-06-02] MEDS ORDERED: Zofran 4 MG/2 ML VIAL IV PRN (21:00)
[2025-06-02] MEDS ORDERED: Nubain 10 MG/ML IV PRN (21:00)
[2025-06-02] MEDS ORDERED: XYLOCAINE 1% HCL 20 ML MDV IJ PRN (21:00)
[2025-06-02] MEDS ORDERED: BRETHINE 1 MG/ML SQ PRN (21:00)
[2025-06-02] MEDS ORDERED: STADOL 2 MG IV PRN (21:00)
[2025-06-02 21:19] LABS: BASOPHIL % 0.5 % (0.1-1.2); Basophil (Absolute #) 0.04 x10^3/uL (0.01-0.08); Eosinophil (Absolute #) 0.22 x10^3/uL (0.04-0.36); Hematocrit 34.8 % (34.1-44.9); Hemoglobin 11.8 g/dL (11.2-15.7); IMMATURE GRAN # 0.07 x10^3u/L (0.001-0.031); IMMATURE GRAN % 0.8 % (0.001-0.429); Lymphocyte (Absolute #) 1.09 x10^3/uL (1.18-3.74); Mean Corpuscular Hemoglobin 29.1 pg (25.6-32.2); Mean Corpuscular Hgb Concent. 33.9 g/dL (32.2-35.5); Monocyte (Absolute #) 0.77 x10^3/uL (0.24-0.86); NUCLEATED RBC # 0.00 x10^3u/L (0.00-0.012); NUCLEATED RBC % 0.0 % (0.00-0.2); Platelet Count 182 x10^3/uL (182-369); Red Blood Count 4.05 x10^6/uL (3.93-5.22); White Blood Count 8.6 x10^3/uL (3.98-10.04)
[2025-06-02 22:02] LABS: ABO TYPING O; RH TYPING POSITIVE
[2025-06-02] MEDS: PITOCIN 30 UNITS/ LR 500 ML 30 UNITS/500 ML PLAST..BAG IV SCH (22:08)
[2025-06-02] MEDS: Lactated Ringers 1,000 ML IV SCH (22:08)
[2025-06-02 22:11] LABS: Glucose, Urine Negative (Negative); Protein,Urine Dip Negative (Negative); RBC 21-50 /HPF (0-5)
[2025-06-02 22:14] LABS: Calcium 9.3 mg/dL (8.4-10.2); Carbon Dioxide 19.0 mmol/L (22-30); Creatinine 1 0.75 mg/dL (0.52-1.04); EST GLOMERULAR FILTRATION RATE 105.8 ML/MIN; Glucose 107.0 mg/dL (74-106); LDH-LACTATE DEHYDROGENASE 156.0 U/L (120-246); Potassium 3.5 mmol/L (3.5-5.1); SGOT/AST 24.0 U/L (14-36); SGPT/ALT 21.0 U/L (0-35); Total Protein 6.9 g/dL (6.3-8.2); Uric Acid 7.6 mg/dL (2.6-6.0)
[2025-06-02 22:18] LABS: Creatinine, Urine Random 112.1 mg/dl; Protein Creatinine Ratio, Ran. 0.17 mg/mg (0.0-0.15); TP, Urine Random 19.0 mg/dl (<12)
[2025-06-02 22:23] LABS: Amphetamine,Urine NEGATIVE (NEGATIVE); Barbiturate,Urine NEGATIVE (NEGATIVE); Benzodiazepine,Urine NEGATIVE (NEGATIVE); Cocaine,Urine NEGATIVE (NEGATIVE); Methadone,Urine NEGATIVE (NEGATIVE); Opiate,Urine NEGATIVE (NEGATIVE); PCP,Urine NEGATIVE (NEGATIVE); THC,Urine NEGATIVE (NEGATIVE)
[2025-06-03] MEDS ORDERED: Tums EX 750 MG PO PRN (01:09)
[2025-06-03] MEDS: Lactated Ringers 1,000 ML IV ONE (06:49)
[2025-06-03] MEDS: FENTANYL 2 MCG-BUPIV 0.125%-NS 250 ML Epidur 250 ML EPIDURAL SCH (07:11)
[2025-06-03] MEDS ORDERED: Sensorcaine 0.25% 10 ML ONE (08:40)
[2025-06-03] MEDS: Ephedrine Sulfate 50 MG/ML IV PRN (09:38)
[2025-06-03] MEDS ORDERED: PITOCIN 30 UNITS/ LR 500 ML 30 UNITS/500 ML PLAST..BAG IV SCH (10:30)
[2025-06-03] MEDS: LANSINOH 40 GM TOP PRN (15:53)
[2025-06-03] MEDS: Dermoplast Spray TP PRN (15:54)
[2025-06-03] MEDS: TUCKS TP PRN (15:54)
[2025-06-03] MEDS: Docusate Sodium 100 MG PO SCH (21:29)
[2025-06-03] MEDS: MOTRIN 400 MG PO PRN (23:00)
[2025-06-04] MEDS: TYLENOL EXTRA STRENGTH 500 MG PO PRN (02:50)
[2025-06-04 04:54] LABS: BASOPHIL % 0.5 % (0.1-1.2); Basophil (Absolute #) 0.05 x10^3/uL (0.01-0.08); Eosinophil (Absolute #) 0.19 x10^3/uL (0.04-0.36); Hematocrit 30.9 % (34.1-44.9); Hemoglobin 10.3 g/dL (11.2-15.7); IMMATURE GRAN # 0.07 x10^3u/L (0.001-0.031); IMMATURE GRAN % 0.7 % (0.001-0.429); Lymphocyte (Absolute #) 1.59 x10^3/uL (1.18-3.74); Mean Corpuscular Hemoglobin 28.9 pg (25.6-32.2); Mean Corpuscular Hgb Concent. 33.3 g/dL (32.2-35.5); Monocyte (Absolute #) 0.81 x10^3/uL (0.24-0.86); NUCLEATED RBC # 0.00 x10^3u/L (0.00-0.012); NUCLEATED RBC % 0.0 % (0.00-0.2); Platelet Count 159 x10^3/uL (182-369); Red Blood Count 3.56 x10^6/uL (3.93-5.22); White Blood Count 9.4 x10^3/uL (3.98-10.04)
--- NOTE | 2025-06-04 08:18 | PCM.NOTE ---
Date and Time: 06/04/25815 Subjective Assessment: ppd 1 sp pt resting in bed and doing well able to ambulate and tolerate diet vss afebrile abd; soft uterus; firm lochia; mild hgb; 10 a/p sp ppd 1 with chronic htn cpm anticipate discharge home tomorrow Objective Data Vital Signs: Vital Signs - 24 hr Temp Pulse Resp BP BP Pulse Ox 06/04/25 05:00 98.9 F 99 H 18 137/72 06/04/25 02:53 98.7 F 94 H 18 123/81 95 06/03/25 23:30 99.4 F 105 H 17 139/70 95 06/03/25 19:44 99.4 F 105 H 17 139/70 95 06/03/25 17:30 97.6 F 107 H 18 141/82 97 06/03/25 16:30 97.6 F 92 H 18 131/63 97 06/03/25 16:00 97.6 F 90 18 127/82 98 06/03/25 15:30 97.9 F 96 H 18 119/71 97 06/03/25 15:15 97.9 F 96 H 18 136/76 100 06/03/25 15:00 97.9 F 95 H 18 117/65 100 06/03/25 14:45 97.9 F 92 H 18 139/97 100 06/03/25 14:30 97.9 F 104 H 20 139/97 96 06/03/25 14:15 100 H 18 144/94 06/03/25 14:00 109 H 18 133/89 06/03/25 13:45 85 18 110/65 06/03/25 13:30 90 18 112/81 06/03/25 13:15 98 H 18 105/64 06/03/25 13:00 80 18 137/80 06/03/25 12:45 79 18 141/80 06/03/25 12:30 90 18 135/95 06/03/25 12:15 79 18 135/76 06/03/25 12:00 86 18 137/72 100 06/03/25 11:45 83 18 128/74 100 06/03/25 11:30 82 18 126/76 100 06/03/25 11:15 94 H 18 132/78 100 06/03/25 11:00 80 18 118/67 100 06/03/25 10:45 83 20 118/67 100 06/03/25 10:30 83 20 97 06/03/25 10:15 94 H 20 100 06/03/25 10:00 97.4 F 94 H 18 111/70 111/70 98 06/03/25 09:45 22 126/70 99 06/03/25 09:30 18 148/72 96 06/03/25 09:15 97 H 18 176/104 97 06/03/25 09:00 22 147/88 98 06/03/25 08:45 97.9 F 88 18 147/88 99 06/03/25 08:30 97.9 F 86 18 165/70 99 Pain Assessment - Last Documented Pain Intensity [Lower] 2 Pain Intensity 0 Pain Scale Used 0-10 Pain Scale Intake and Output: Intake & Output 06/01/25 06/02/25 06/03/25 06/04/25 11:59 11:59 11:59 11:59 Intake Total 3326 1000 Output Total 700 Balance 3326 300 Weight 75.75 kg Lab Results: Lab Results-Last 24 Hours 06/04/25 Range/Units 04:15 WBC 9.4 (3.98-10.04) x10^3/uL RBC 3.56 L (3.93-5.22) x10^6/uL Hgb 10.3 L (11.2-15.7) g/dL Hct 30.9 L (34.1-44.9) % MCV 86.8 (79.4-94.8) fL MCH 28.9 (25.6-32.2) pg MCHC 33.3 (32.2-35.5) g/dL RDW 13.3 (11.7-14.4) % Plt Count 159 L (182-369) x10^3/uL MPV 10.7 (9.4-12.3) fL Gran % 71.3 H (34.0-71.1) % Immature Gran % (Auto) 0.7 H (0.001-0.429) % Nucleat RBC Rel Count 0.0 (0.00-0.2) % Eos # (Auto) 0.19 (0.04-0.36) x10^3/uL Immature Gran # (Auto) 0.07 H (0.001-0.031) x10^3u/L Absolute Lymphs (auto) 1.59 (1.18-3.74) x10^3/uL Absolute Monos (auto) 0.81 (0.24-0.86) x10^3/uL Absolute Nucleated RBC 0.00 (0.00-0.012) x10^3u/L Lymphocytes % 16.9 L (19.3-51.7) % Monocytes % 8.6 (4.7-12.5) % Eosinophils % 2.0 (0.7-5.8) % Basophils % 0.5 (0.1-1.2) % Absolute Granulocytes 6.70 H (1.56-6.13) x10^3/uL Basophils # 0.05 (0.01-0.08) x10^3/uL Medications: Medications Generic Name Dose Route Start Last Admin Trade Name Freq PRN Reason Stop Dose Admin Acetaminophen 1,000 mg 06/02/25 21:00 06/04/25 02:50 Acetaminophen 500 Mg Tablet PO 07/02/25 20:59 1,000 mg Q4H PRN PRN Administration HEADACHE/MILD PAIN/ FEVER Benzocaine 40 gm 06/03/25 14:36 06/03/25 15:54 Benzocaine/Lanolin/Aloe Vera 85 Gm Can TP 07/03/25 14:35 85 gm UD PRN Administration PAIN Butorphanol Tartrate 1 mg 06/02/25 21:00 Butorphanol Tartrate 2 Mg/Ml Vial IV 07/02/25 20:59 Q4H PRN PRN MODERATE PAIN Calcium Carbonate/Glycine 750 mg 06/03/25 01:09 Calcium Carbonate 750 Mg 750 Mg Tab.Chew PO 07/03/25 01:08 PRN PRN INDIGESTION Docusate Sodium 100 mg 06/03/25 22:00 06/03/25 21:29 Docusate Sodium 100 Mg Capsule PO 07/03/25 21:59 100 mg BID RENATE Administration Emollient Ointment 0 gm 06/03/25 14:36 06/03/25 15:53 Lansinoh 40 Gm Tube TOP 07/03/25 14:35 40 gm PRN PRN Administration PAIN Ephedrine Sulfate 10 mg 06/03/25 00:00 06/03/25 09:38 Ephedrine Sulfate 50 Mg/Ml IV 07/03/25 00:00 10 mg PRN PRN Administration SBP<100 Oxytocin/Lactated Ringer's 30 units in 500 mls @ 2 mls/min 06/02/25 21:00 06/02/25 22:08 Pitocin 30 Units/ Lr 500 Ml IV 07/02/25 20:59 1 mls/min .Q4H10M RENATE Administration Protocol Lactated Ringer's 1,000 mls @ 125 mls/hr 06/02/25 21:00 06/03/25 14:10 Lactated Ringers IV 07/02/25 20:59 125 mls/hr .Q8H RENATE Administration Oxytocin/Lactated Ringer's 30 units in 500 mls @ 5 mls/hr 06/03/25 10:30 Pitocin 30 Units/ Lr 500 Ml IV 07/03/25 10:29 .Q24H RENATE FENTANYL/BUPIVACAINE/NS/PF 250 mls @ 0 mls/hr 06/03/25 00:00 06/03/25 07:11 Fentanyl 2 Mcg-Bupiv 0.125%-Ns 250 Ml Epidur EPIDURAL 07/03/25 00:00 12 mls/hr .Q0M RENATE Administration Protocol Titrate Ibuprofen 800 mg 06/03/25 14:36 06/03/25 23:00 Ibuprofen 400 Mg Tablet PO 07/03/25 14:35 800 mg Q6H PRN PRN Administration MODERATE PAIN Lidocaine HCl 10 ml 06/02/25 21:00 Lidocaine Hcl 1% 20 Ml Mdv 20 Ml Ml IJ 07/02/25 20:59 PRN PRN PAIN Nalbuphine HCl 5 - 10 mg 06/02/25 21:00 Nalbuphine Hcl 10 Mg/Ml Ampul IV 07/02/25 20:59 Q4H PRN PRN PAIN Ondansetron HCl 4 mg 06/02/25 21:00 Ondansetron Hcl 4 Mg/2 Ml Vial IV 07/02/25 20:59 Q4H PRN PRN NAUSEA/VOMITING Polysaccharide Iron Complex 150 mg 06/04/25 10:00 Iron Polysaccharides Complex 150 Mg Capsule PO 07/04/25 09:59 DAILY RENATE Terbutaline Sulfate 0.25 mg 06/02/25 21:00 Terbutaline Sulfate 1 Mg/Ml Vial SQ 07/02/25 20:59 PRN PRN FOR HYPERSTIMULATION Mario Cooper 1 pad 06/03/25 14:36 06/03/25 15:54 Mario Cooper 1 Pad Med..Pad TP 07/03/25 14:35 1 pad PRN PRN Administration ITCHING Discontinued Medications Generic Name Dose Route Start Last Admin Trade Name Freq PRN Reason Stop Dose Admin Bupivacaine HCl Confirm 06/03/25 08:40 Bupivacaine Hcl 2.5 Mg/Ml 10 Ml Administered 06/03/25 08:41 Dose 10 ml .ROUTE .STK-MED ONE Diphtheria/Tetanus/Acell Pertussis 0.5 ml 06/03/25 18:00 Tdap --Diph,Pertuss(Acell),Tet Vac/Pf 0.5 Ml Vial IM 06/03/25 18:01 .ONCE ONE Lactated Ringer's 1,000 mls @ 999 mls/hr 06/03/25 00:00 06/03/25 06:49 Lactated Ringers IV 06/03/25 01:00 999 mls/hr .Q1H1M ONE Administration Assessment/Plan (1) Vaginal delivery Current Visit: Yes Status: Acute Code(s): O80 - ENCOUNTER FOR FULL-TERM UNCOMPLICATED DELIVERY
[2025-06-04 09:26] VITALS: PULSE 93; RESP 16
[2025-06-04] MEDS: FERREX 150 PO SCH (09:51)
[2025-06-04] MEDS: Adacel Vial IM ONE (10:04)
[2025-06-04 11:30] LABS: RPR Non Reactive (Non Reactive)
[2025-06-04] MEDS: PATIENT OWN MEDICATION PO SCH (15:29)
--- NOTE | 2025-06-05 07:43 | PCM.NOTE ---
Date and Time: 06/05/25741 Subjective Assessment: ppd 1 sp pt resting in bed and doing well able to ambulate and tolerate diet vss afebrile abd; soft uterus; firm lochia; mild a/p sp ppd 2 with chronic htn dc home today fu office 1wks for bp check Objective Data Vital Signs: Vital Signs - 24 hr Temp Pulse Resp BP Pulse Ox 06/05/25 06:38 97.6 F 78 18 139/76 97 06/05/25 04:00 98.0 F 80 18 128/76 06/05/25 02:00 97.9 F 81 18 154/91 06/04/25 19:46 97.9 F 81 18 154/91 97 06/04/25 14:00 98.2 F 87 16 137/88 92 L 06/04/25 08:00 97.9 F 93 H 16 138/80 98 Pain Assessment - Last Documented Pain Intensity [Lower] 2 Pain Intensity 3 Pain Scale Used 0-10 Pain Scale Intake and Output: Intake & Output 06/02/25 06/03/25 06/04/25 06/05/25 11:59 11:59 11:59 11:59 Intake Total 3326 1000 1250 Output Total 700 Balance 3326 300 1250 Weight 75.75 kg Lab Results: Lab Results-Last 24 Hours 06/02/25 Range/Units 21:15 RPR Non Reactive (Non Reactive) Medications: Medications Generic Name Dose Route Start Last Admin Trade Name Freq PRN Reason Stop Dose Admin Acetaminophen 1,000 mg 06/02/25 21:00 06/04/25 02:50 Acetaminophen 500 Mg Tablet PO 07/02/25 20:59 1,000 mg Q4H PRN PRN Administration HEADACHE/MILD PAIN/ FEVER Benzocaine 40 gm 06/03/25 14:36 06/03/25 15:54 Benzocaine/Lanolin/Aloe Vera 85 Gm Can TP 07/03/25 14:35 85 gm UD PRN Administration PAIN Butorphanol Tartrate 1 mg 06/02/25 21:00 Butorphanol Tartrate 2 Mg/Ml Vial IV 07/02/25 20:59 Q4H PRN PRN MODERATE PAIN Calcium Carbonate/Glycine 750 mg 06/03/25 01:09 Calcium Carbonate 750 Mg 750 Mg Tab.Chew PO 07/03/25 01:08 PRN PRN INDIGESTION Docusate Sodium 100 mg 06/03/25 22:00 06/04/25 19:37 Docusate Sodium 100 Mg Capsule PO 07/03/25 21:59 100 mg BID RENATE Administration Emollient Ointment 0 gm 06/03/25 14:36 06/03/25 15:53 Lansinoh 40 Gm Tube TOP 07/03/25 14:35 40 gm PRN PRN Administration PAIN Ephedrine Sulfate 10 mg 06/03/25 00:00 06/03/25 09:38 Ephedrine Sulfate 50 Mg/Ml IV 07/03/25 00:00 10 mg PRN PRN Administration SBP<100 Oxytocin/Lactated Ringer's 30 units in 500 mls @ 2 mls/min 06/02/25 21:00 06/02/25 22:08 Pitocin 30 Units/ Lr 500 Ml IV 07/02/25 20:59 1 mls/min .Q4H10M RENATE Administration Protocol Lactated Ringer's 1,000 mls @ 125 mls/hr 06/02/25 21:00 06/03/25 14:10 Lactated Ringers IV 07/02/25 20:59 125 mls/hr .Q8H RENATE Administration Oxytocin/Lactated Ringer's 30 units in 500 mls @ 5 mls/hr 06/03/25 10:30 Pitocin 30 Units/ Lr 500 Ml IV 07/03/25 10:29 .Q24H RENATE FENTANYL/BUPIVACAINE/NS/PF 250 mls @ 0 mls/hr 06/03/25 00:00 06/03/25 07:11 Fentanyl 2 Mcg-Bupiv 0.125%-Ns 250 Ml Epidur EPIDURAL 07/03/25 00:00 12 mls/hr .Q0M RENATE Administration Protocol Titrate Ibuprofen 800 mg 06/03/25 14:36 06/05/25 06:25 Ibuprofen 400 Mg Tablet PO 07/03/25 14:35 800 mg Q6H PRN PRN Administration MODERATE PAIN Lidocaine HCl 10 ml 06/02/25 21:00 Lidocaine Hcl 1% 20 Ml Mdv 20 Ml Ml IJ 07/02/25 20:59 PRN PRN PAIN Lisinopril 10 mg 06/05/25 10:00 Lisinopril 10 Mg Tablet PO 07/05/25 09:59 DAILY RENATE Nalbuphine HCl 5 - 10 mg 06/02/25 21:00 Nalbuphine Hcl 10 Mg/Ml Ampul IV 07/02/25 20:59 Q4H PRN PRN PAIN Ondansetron HCl 4 mg 06/02/25 21:00 Ondansetron Hcl 4 Mg/2 Ml Vial IV 07/02/25 20:59 Q4H PRN PRN NAUSEA/VOMITING Adderall 10 Mg Tab - 1 each 06/04/25 16:00 06/04/25 15:36 Patient Own PO 07/04/25 15:59 0.5 each DAILY RENATE Administration Polysaccharide Iron Complex 150 mg 06/04/25 10:00 06/04/25 09:51 Iron Polysaccharides Complex 150 Mg Capsule PO 07/04/25 09:59 150 mg DAILY RENATE Administration Terbutaline Sulfate 0.25 mg 06/02/25 21:00 Terbutaline Sulfate 1 Mg/Ml Vial SQ 07/02/25 20:59 PRN PRN FOR HYPERSTIMULATION Mario Cooper 1 pad 06/03/25 14:36 06/03/25 15:54 Mario Cooper 1 Pad Med..Pad TP 07/03/25 14:35 1 pad PRN PRN Administration ITCHING Discontinued Medications Generic Name Dose Route Start Last Admin Trade Name Freq PRN Reason Stop Dose Admin Bupivacaine HCl Confirm 06/03/25 08:40 Bupivacaine Hcl 2.5 Mg/Ml 10 Ml Administered 06/03/25 08:41 Dose 10 ml .ROUTE .STK-MED ONE Diphtheria/Tetanus/Acell Pertussis 0.5 ml 06/03/25 18:00 06/04/25 10:04 Tdap --Diph,Pertuss(Acell),Tet Vac/Pf 0.5 Ml Vial IM 06/03/25 18:01 0.5 ml .ONCE ONE Administration Lactated Ringer's 1,000 mls @ 999 mls/hr 06/03/25 00:00 06/03/25 06:49 Lactated Ringers IV 06/03/25 01:00 999 mls/hr .Q1H1M ONE Administration Assessment/Plan (1) Vaginal delivery Current Visit: Yes Status: Acute Code(s): O80 - ENCOUNTER FOR FULL-TERM UNCOMPLICATED DELIVERY
--- NOTE | 2025-06-05 07:48 | PCM.DS ---
Discharge Summary Date of Admission: 06/03/25 07:51 Admitting Physician: GALLO MUNOZ DO Consults: Consults on Case 06/03/25 00:00 Notify Anesthesia Provider PRN Primary Care Provider: ROSEMARY DEL TORO Allergies Allergies No Known Drug Allergies Allergy (Verified 05/30/25 12:34) Hospital Summary - Hospital Course Hospital Course: pt admitted on jun 02 for pitocin induction at 38 wks gestation with hx of chronic htn was noted having elevated bp in office and had been on lisinopril just prior to . pt was noted having elevated bp upon arrival to labor and delivery and was given a dose of labetolol 200mg. pt was started on pitocin and subsequently delivered on june 03 live baby boy without complication and was noted having no perineal laceration upon delivery. pt was noted having an elevated bp prior to being discharged today which occurred last night and was 154/91 and was started on lisinopril today and was advised to fu in office in 1 wk for bp check. pt at this time with stable vitals and hgb was hgb was 10 prior to discharge and was advised to fu in office in 3 wks. all questions answered to her satisfaction. - Vitals & Intake/Output Vital Signs: Vital Signs Temperature 97.6 F 06/05/25 06:38 Pulse Rate 78 06/05/25 06:38 Respiratory Rate 18 06/05/25 06:38 Blood Pressure 139/76 06/05/25 06:38 O2 Sat by Pulse Oximetry 97 06/05/25 06:38 Intake & Output: Intake & Output 06/02/25 06/03/25 06/04/25 06/05/25 11:59 11:59 11:59 11:59 Intake Total 3326 1000 1250 Output Total 700 Balance 3326 300 1250 Weight 75.75 kg - Lab Result Diagrams: 06/04/25 04:15 06/02/25 21:10 Lab Results-Last 24 Hrs: Lab Results-Last 24 Hours 06/02/25 Range/Units 21:15 RPR Non Reactive (Non Reactive) Micro Results-Entire Visit: Microbiology 06/02/25 20:56 Urine Culture - Final Urine, Void NO GROWTH - Procedures and Test Procedures and Tests throughout Hospitalization: Therapy Orders & Screens 06/03/25 14:32 Standby ROUTINE Comment: Final Diagnosis/Problem List - Final Discharge Diagnosis/Problem (1) Vaginal delivery Current Visit: Yes Status: Acute Code(s): O80 - ENCOUNTER FOR FULL-TERM UNCOMPLICATED DELIVERY - Discharge Disposition: Home, Self-Care Condition: Stable Prescriptions: No Action Dextroamphetamine/Amphetamine [Adderall 20 mg Tablet] 20 mg PO BID Metformin HCl 500 mg [Glucophage 500 MG] 500 mg PO DAILY Ferrous Sulfate 325 mg [Feosol 325 mg] 325 mg PO DAILY Aspirin 81 mg PO DAILY Follow up with: ROSEMARY DEL TORO NP [Primary Care Provider, [facility]] GALLO MUNOZ DO [ACTIVE STAFF, OBSTETRICS-GYNECOLOGY] - 1 Week Referral Note: should fu in office in 1 wk for bp check should call me for any issues that may arise upon discharge
[2025-06-05] MEDS: Zestril 10 MG PO SCH (09:13)
[2025-06-07 10:22] VITALS: BP 108/63; TEMP 98.4; O2SAT 95
== END 2025-06-05 14:15 | disposition home or self-care (01) | DRG 807 ==
LOC: OB 07:51 → OBSVTOIN 06-03 07:51
PROVIDERS: ADMIT Obstetrics & Gynecology; ATTEND Obstetrics & Gynecology
PROC: 10E0XZZ Delivery of Products of Conception, External Approach (ICD-10-PCS; principal; 2025-06-03)
DX: O10.92 Unspecified pre-existing hypertension complicating childbirth (principal); Z37.0 Single live birth; Z3A.38 38 weeks gestation of pregnancy

== ENCOUNTER 2025-06-07 20:43 | Observation (INO) | payer OTHER ==
[2025-06-07] MEDS: Magnesium Sulfate 40 Gm/1000 Ml H2O Premix*** 1,000 ML IV SCH (21:25)
[2025-06-07] MEDS: Lactated Ringers 1,000 ML IV SCH (21:38)
[2025-06-07] MEDS: Trandate 100 MG PO SCH (22:22)
[2025-06-08] MEDS: TYLENOL EXTRA STRENGTH 500 MG PO PRN (01:59)
[2025-06-08 04:34] LABS: Creatinine, Urine Random 20.4 mg/dl; Protein Creatinine Ratio, Ran. 1.72 mg/mg (0.0-0.15); TP, Urine Random 35.0 mg/dl (<12)
[2025-06-08 06:48] LABS: Hematocrit 34.2 % (34.1-44.9); Hemoglobin 11.2 g/dL (11.2-15.7); Mean Corpuscular Hemoglobin 29.1 pg (25.6-32.2); Mean Corpuscular Hgb Concent. 32.7 g/dL (32.2-35.5); Platelet Count 206 x10^3/uL (182-369); Red Blood Count 3.85 x10^6/uL (3.93-5.22); White Blood Count 7.6 x10^3/uL (3.98-10.04)
[2025-06-08 07:20] LABS: Carbon Dioxide 21.0 mmol/L (22-30); Creatinine 1 0.63 mg/dL (0.52-1.04); EST GLOMERULAR FILTRATION RATE 117.8 ML/MIN; Glucose 92.0 mg/dL (74-106); Potassium 3.6 mmol/L (3.5-5.1); SGOT/AST 30.0 U/L (14-36); SGPT/ALT 39.0 U/L (0-35); Total Protein 6.0 g/dL (6.3-8.2)
[2025-06-08 07:56] LABS: Calcium 7.5 mg/dL (8.4-10.2)
--- NOTE | 2025-06-08 09:55 | PCM.HP ---
History of Present Illness - Chief Complaint Chief Complaint: preeclampsia History of Present Illness: is a 35 year old female who presented for her OB followup to the labor and delivery department last evening, she has a history of chronic hypertension and was 4 days from term vaginal delivery. she was found to have significant hypertension in spite of taking her home lisinopril, went to ER and found to have minimally elevated LFTs with elevation of urine protein/creatinine ratio indicative of preeclampsia. She feels well this morning, denies headache, visual changes or RUQ pain. - Review of Systems Constitutional: No Fever, No Chills Respiratory: No Cough, No Short Of Breath Cardiac: No Chest Pain, No Edema, No Syncope Abdominal/Gastrointestinal: No Abdominal Pain, No Nausea, No Vomiting, No Diarrhea Genitourinary Symptoms: Vaginal Bleeding (mild lochia) Skin: No Rash Neurological: No Headache, No Lethargy, No Sensory Changes, No Speech Changes All Other Systems: Reviewed and Negative Medications & Allergies Home Medications: Home Medication List Dextroamphetamine/Amphetamine [Adderall 20 mg Tablet] 10 mg PO DAILY 11/11/20 [History Confirmed 06/07/25] Lisinopril 10 mg [Zestril 10 MG] 10 mg PO DAILY 06/05/25 [History Confirmed 06/07/25] Allergies/Adverse Reactions: Allergies Allergy/AdvReac Type Severity Reaction Status Date / Time No Known Drug Allergies Allergy Verified 05/30/25 12:34 - Past Medical History Past Medical History: Yes Neurological History: No Pertinent History ENT History: No Pertinent History Cardiac History: Hypertension Respiratory History: No Pertinent History Endocrine Medical History: No Pertinent History Musculoskelatal History: No Pertinent History GI Medical History: No Pertinent History History: Other Pyscho-Social History: Attention Deficit Disorder Reproductive Disorders: Other Comment: Kidney Stones. PCOS. ADHD - Female History Hx Last Menstrual Period: 11/08/2024 - Past Surgical History Past Surgical History: Yes Neuro Surgical History: No Pertinent History Cardiac History: No Pertinent History Respiratory Surgery: No Pertinent History GI Surgical History: No Pertinent History Genitourinary Surgical Hx: Other Musculskeletal Surgical Hx: No Pertinent History Female Surgical History: Dilation & Curettage Other Surgical History: D&C 2023. Lithotripsy 2023 - Social History Smoking Status: Former smoker How long have you smoked: 8 yrs Exposure to second hand smoke: No Alcohol: None Drug Use: none - Social Determinants of Health Will the patient participate in the screening: Yes Do you worry about a steady place to live?: No Do you have any problems with any of the following?: No known problems In the past 12 months,have you had to go without utilities?: No Have you or anyone in your house had to go without enough: No Transportation Issues: No Has anyone in your support network made you feel unsafe?: No Does the patient want assistance with any of the above?: No - Physical Exam Vital Signs: Vital Signs - 24 hr Temp Pulse Resp BP BP Pulse Ox 06/08/25 09:00 77 18 132/79 132/79 100 06/08/25 08:00 97.6 F 92 H 18 139/62 139/62 95 06/08/25 07:00 85 18 113/71 113/71 95 06/08/25 06:00 78 18 109/56 109/56 96 06/08/25 05:00 82 18 125/69 125/69 06/08/25 04:00 98 F 70 18 126/74 126/74 06/08/25 03:00 72 18 109/58 109/58 93 L 06/08/25 02:00 71 16 126/77 126/77 98 06/08/25 01:00 82 18 132/77 98 06/08/25 00:00 84 16 137/77 137/77 95 06/07/25 23:00 93 H 123/77 126/77 97 06/07/25 22:45 84 18 137/80 97 06/07/25 22:30 86 16 149/81 96 06/07/25 22:15 88 16 154/94 88 L 06/07/25 22:00 93 H 147/94 06/07/25 21:57 88 18 147/94 98 06/07/25 21:52 86 18 150/80 98 06/07/25 21:47 96 H 18 154/84 98 06/07/25 21:43 85 18 166/85 98 06/07/25 21:37 89 18 148/97 98 06/07/25 21:34 77 142/99 06/07/25 21:32 94 H 18 145/101 93 L 06/07/25 21:27 93 H 18 145/101 96 06/07/25 21:13 98.3 F 77 18 142/99 98 06/07/25 21:10 81 18 144/100 81 L 06/07/25 21:00 81 18 146/100 98 06/07/25 20:43 98.3 F 77 18 142/99 98 General Appearance: no apparent distress Neurologic Exam: alert, oriented x 3 Respiratory Exam: normal breath sounds, lungs clear, No respiratory distress Cardiovascular Exam: regular rate/rhythm, normal heart sounds, normal peripheral pulses Gastrointestinal/Abdomen Exam: soft, No tenderness, No hepatomegaly Extremity Exam: normal inspection, other (DTR 2+ slightly brisk, no clonus), No swelling Skin Exam: normal color, warm, dry Results - Labs Lab/Micro Results: Lab Results-Last 24 Hours 06/08/25 06/08/25 06/08/25 Range/Units 01:10 04:00 06:45 WBC 7.6 (3.98-10.04) x10^3/uL RBC 3.85 L (3.93-5.22) x10^6/uL Hgb 11.2 (11.2-15.7) g/dL Hct 34.2 (34.1-44.9) % MCV 88.8 (79.4-94.8) fL MCH 29.1 (25.6-32.2) pg MCHC 32.7 (32.2-35.5) g/dL RDW 13.3 (11.7-14.4) % Plt Count 206 (182-369) x10^3/uL MPV 10.1 (9.4-12.3) fL Sodium (135-145) mmol/L Potassium (3.5-5.1) mmol/L Chloride (98-107) mmol/L Carbon Dioxide (22-30) mmol/L Anion Gap (5-15) MEQ/L BUN (7-17) mg/dL Creatinine (0.52-1.04) mg/dL Estimated GFR ML/MIN Glucose (74-106) mg/dL Calcium (8.4-10.2) mg/dL Magnesium 5.0 H (1.6-2.3) mg/dL Total Bilirubin (0.2-1.3) mg/dL AST (14-36) U/L ALT (0-35) U/L Alkaline Phosphatase (38-126) U/L Lactate Dehydrogenase (120-246) U/L Serum Total Protein (6.3-8.2) g/dL Albumin (3.5-5.0) g/dL Ur Random Creatinine 20.4 mg/dl U Random Total Protein 35.0 (<12) mg/dl U [place] Prot/Creat Ratio 1.72 H (0.0-0.15) mg/mg 06/08/25 06/08/25 Range/Units 06:45 06:45 WBC (3.98-10.04) x10^3/uL RBC (3.93-5.22) x10^6/uL Hgb (11.2-15.7) g/dL Hct (34.1-44.9) % MCV (79.4-94.8) fL MCH (25.6-32.2) pg MCHC (32.2-35.5) g/dL RDW (11.7-14.4) % Plt Count (182-369) x10^3/uL MPV (9.4-12.3) fL Sodium 136 (135-145) mmol/L Potassium 3.6 (3.5-5.1) mmol/L Chloride 106 (98-107) mmol/L Carbon Dioxide 21 L (22-30) mmol/L Anion Gap 12.4 (5-15) MEQ/L BUN 10 (7-17) mg/dL Creatinine 0.63 (0.52-1.04) mg/dL Estimated GFR 117.8 ML/MIN Glucose 92 (74-106) mg/dL Calcium 7.5 L D (8.4-10.2) mg/dL Magnesium (1.6-2.3) mg/dL Total Bilirubin 0.40 (0.2-1.3) mg/dL AST 30 (14-36) U/L ALT 39 H (0-35) U/L Alkaline Phosphatase 119 (38-126) U/L Lactate Dehydrogenase 188 (120-246) U/L Serum Total Protein 6.0 L (6.3-8.2) g/dL Albumin 3.2 L (3.5-5.0) g/dL Ur Random Creatinine mg/dl U Random Total Protein (<12) mg/dl U [place] Prot/Creat Ratio (0.0-0.15) mg/mg Assessment/Plan (1) Pre-eclampsia, Current Visit: Yes Status: Acute Assessment & Plan: plan to continue mag for 24 hours then discontinue, will monitor BP overnight and repeat HELLP labs in the morning. disposition pending BP control and labs Code(s): O14.95 - UNSPECIFIED PRE-ECLAMPSIA, COMPLICATING THE PUERPERIUM (2) Chronic hypertension in obstetric context Current Visit: Yes Status: Acute Assessment & Plan: continued on lisinopril 10mg po daily Code(s): O10.919 - UNSP PRE-EXISTING HTN COMP , UNSP TRIMESTER
[2025-06-08] MEDS: MOTRIN 400 MG PO PRN (10:05)
[2025-06-08] MEDS: Zestril 10 MG PO SCH (16:09)
[2025-06-08 17:55] LABS: BASOPHIL % 0.6 % (0.1-1.2); Basophil (Absolute #) 0.04 x10^3/uL (0.01-0.08); Eosinophil (Absolute #) 0.32 x10^3/uL (0.04-0.36); Hematocrit 34.6 % (34.1-44.9); Hemoglobin 11.4 g/dL (11.2-15.7); IMMATURE GRAN # 0.05 x10^3u/L (0.001-0.031); IMMATURE GRAN % 0.8 % (0.001-0.429); Lymphocyte (Absolute #) 1.32 x10^3/uL (1.18-3.74); Mean Corpuscular Hemoglobin 29.2 pg (25.6-32.2); Mean Corpuscular Hgb Concent. 32.9 g/dL (32.2-35.5); Monocyte (Absolute #) 0.56 x10^3/uL (0.24-0.86); NUCLEATED RBC # 0.00 x10^3u/L (0.00-0.012); NUCLEATED RBC % 0.0 % (0.00-0.2); Platelet Count 232 x10^3/uL (182-369); Red Blood Count 3.91 x10^6/uL (3.93-5.22); White Blood Count 6.2 x10^3/uL (3.98-10.04)
[2025-06-08 18:10] LABS: Calcium 7.0 mg/dL (8.4-10.2); Carbon Dioxide 24.0 mmol/L (22-30); Creatinine 1 0.86 mg/dL (0.52-1.04); EST GLOMERULAR FILTRATION RATE 89.7 ML/MIN; Glucose 83.0 mg/dL (74-106); LDH-LACTATE DEHYDROGENASE 206.0 U/L (120-246); Potassium 3.4 mmol/L (3.5-5.1); SGOT/AST 29.0 U/L (14-36); SGPT/ALT 39.0 U/L (0-35); Total Protein 6.6 g/dL (6.3-8.2); Uric Acid 6.9 mg/dL (2.6-6.0)
[2025-06-08 18:33] LABS: TP, Urine Random 62.0 mg/dl (<12)
[2025-06-08 18:34] LABS: Creatinine, Urine Random 26.8 mg/dl; Protein Creatinine Ratio, Ran. 2.31 mg/mg (0.0-0.15)
[2025-06-08] MEDS ORDERED: Adalat CC 30 MG TABLET PO ONE (21:05)
[2025-06-08] MEDS: Adalat CC 30 MG TABLET PO SCH (21:08)
[2025-06-09 06:16] LABS: BASOPHIL % 0.6 % (0.1-1.2); Basophil (Absolute #) 0.04 x10^3/uL (0.01-0.08); Eosinophil (Absolute #) 0.32 x10^3/uL (0.04-0.36); Hematocrit 35.0 % (34.1-44.9); Hemoglobin 11.3 g/dL (11.2-15.7); IMMATURE GRAN # 0.05 x10^3u/L (0.001-0.031); IMMATURE GRAN % 0.8 % (0.001-0.429); Lymphocyte (Absolute #) 1.46 x10^3/uL (1.18-3.74); Mean Corpuscular Hemoglobin 29.0 pg (25.6-32.2); Mean Corpuscular Hgb Concent. 32.3 g/dL (32.2-35.5); Monocyte (Absolute #) 0.52 x10^3/uL (0.24-0.86); NUCLEATED RBC # 0.00 x10^3u/L (0.00-0.012); NUCLEATED RBC % 0.0 % (0.00-0.2); Platelet Count 215 x10^3/uL (182-369); Red Blood Count 3.89 x10^6/uL (3.93-5.22); White Blood Count 6.7 x10^3/uL (3.98-10.04)
[2025-06-09 06:46] LABS: Calcium 6.8 mg/dL (8.4-10.2); Carbon Dioxide 24.0 mmol/L (22-30); Creatinine 1 0.65 mg/dL (0.52-1.04); EST GLOMERULAR FILTRATION RATE 117.0 ML/MIN; Glucose 82.0 mg/dL (74-106); Potassium 3.7 mmol/L (3.5-5.1); SGOT/AST 35.0 U/L (14-36); SGPT/ALT 41.0 U/L (0-35); Total Protein 6.2 g/dL (6.3-8.2)
--- NOTE | 2025-06-09 08:01 | PCM.NOTE ---
Date and Time: 06/09/25 0759 Subjective Assessment: magnesium has been discontinued, patient feels well this morning. denies headache or visual changes, no ruq pain. her BP has been high overnight, she is still receiving lisinopril 10mg and had procardia xl 30mg po daily Objective Exam General Appearance: no apparent distress Neurologic Exam: alert, oriented x 3 Respiratory Exam: normal breath sounds, lungs clear, No respiratory distress Cardiovascular Exam: regular rate/rhythm, normal heart sounds Gastrointestinal/Abdomen Exam: soft, other, No tenderness, No mass Extremity Exam: normal inspection, other (DTR 2+ slightly brisk) Objective Data Vital Signs: Vital Signs - 24 hr Temp Pulse Resp BP BP Pulse Ox 06/09/25 05:21 106 H 16 138/83 06/09/25 02:43 98.0 F 82 18 139/85 98 06/08/25 23:35 97.6 F 82 18 147/92 97 06/08/25 21:22 80 141/90 06/08/25 21:00 80 18 141/90 98 06/08/25 20:00 97.5 F 82 18 139/85 139/85 96 06/08/25 19:00 83 18 127/74 127/74 97 06/08/25 18:00 80 18 134/78 134/78 97 06/08/25 17:00 80 18 135/79 135/79 98 06/08/25 16:00 98.0 F 80 18 119/76 119/76 97 06/08/25 15:00 81 18 120/72 120/72 06/08/25 14:00 82 18 126/77 126/77 97 06/08/25 13:00 83 18 110/59 110/59 99 06/08/25 12:00 83 18 118/75 118/75 97 06/08/25 11:00 98.3 F 88 18 123/92 123/92 99 06/08/25 10:00 86 18 116/66 116/66 98 06/08/25 09:00 77 18 132/79 132/79 100 06/08/25 08:00 97.6 F 92 H 18 139/62 139/62 95 Pain Assessment - Last Documented Pain Intensity [Anterior] 0 Pain Intensity 5 Pain Scale Used 0-10 Pain Scale Intake and Output: Intake & Output 06/06/25 06/07/25 06/08/25/14/25 11:59 11:59 11:59 11:59 Intake Total 0243 9811 Output Total 0994 3563 Balance -465 -794 Weight 75.296 kg Lab Results: Lab Results-Last 24 Hours 06/08/25 06/08/25 06/08/25 Range/Units 17:50 17:50 18:24 WBC 6.2 (3.98-10.04) x10^3/uL RBC 3.91 L (3.93-5.22) x10^6/uL Hgb 11.4 (11.2-15.7) g/dL Hct 34.6 (34.1-44.9) % MCV 88.5 (79.4-94.8) fL MCH 29.2 (25.6-32.2) pg MCHC 32.9 (32.2-35.5) g/dL RDW 13.2 (11.7-14.4) % Plt Count 232 (182-369) x10^3/uL MPV 10.1 (9.4-12.3) fL Gran % 63.1 (34.0-71.1) % Immature Gran % (Auto) 0.8 H (0.001-0.429) % Nucleat RBC Rel Count 0.0 (0.00-0.2) % Eos # (Auto) 0.32 (0.04-0.36) x10^3/uL Immature Gran # (Auto) 0.05 H (0.001-0.031) x10^3u/L Absolute Lymphs (auto) 1.32 (1.18-3.74) x10^3/uL Absolute Monos (auto) 0.56 (0.24-0.86) x10^3/uL Absolute Nucleated RBC 0.00 (0.00-0.012) x10^3u/L Lymphocytes % 21.3 (19.3-51.7) % Monocytes % 9.0 (4.7-12.5) % Eosinophils % 5.2 (0.7-5.8) % Basophils % 0.6 (0.1-1.2) % Absolute Granulocytes 3.90 (1.56-6.13) x10^3/uL Basophils # 0.04 (0.01-0.08) x10^3/uL Sodium 136 (135-145) mmol/L Potassium 3.4 L (3.5-5.1) mmol/L Chloride 104 (98-107) mmol/L Carbon Dioxide 24 (22-30) mmol/L Anion Gap 10.8 (5-15) MEQ/L BUN 13 (7-17) mg/dL Creatinine 0.86 (0.52-1.04) mg/dL Estimated GFR 89.7 ML/MIN Glucose 83 (74-106) mg/dL Uric Acid 6.9 H (2.6-6.0) mg/dL Calcium 7.0 L (8.4-10.2) mg/dL Magnesium 6.7 H* (1.6-2.3) mg/dL Total Bilirubin 0.40 (0.2-1.3) mg/dL AST 29 (14-36) U/L ALT 39 H (0-35) U/L Alkaline Phosphatase 133 H (38-126) U/L Lactate Dehydrogenase 206 (120-246) U/L Serum Total Protein 6.6 (6.3-8.2) g/dL Albumin 3.5 (3.5-5.0) g/dL Ur Random Creatinine 26.8 mg/dl U Random Total Protein 62.0 (<12) mg/dl U [place] Prot/Creat Ratio 2.31 H (0.0-0.15) mg/mg 06/09/25 06/09/25 06/09/25 Range/Units 06:23 06:23 06:23 WBC 6.7 (3.98-10.04) x10^3/uL RBC 3.89 L (3.93-5.22) x10^6/uL Hgb 11.3 (11.2-15.7) g/dL Hct 35.0 (34.1-44.9) % MCV 90.0 (79.4-94.8) fL MCH 29.0 (25.6-32.2) pg MCHC 32.3 (32.2-35.5) g/dL RDW 13.2 (11.7-14.4) % Plt Count 215 (182-369) x10^3/uL MPV 10.2 (9.4-12.3) fL Gran % 64.0 (34.0-71.1) % Immature Gran % (Auto) 0.8 H (0.001-0.429) % Nucleat RBC Rel Count 0.0 (0.00-0.2) % Eos # (Auto) 0.32 (0.04-0.36) x10^3/uL Immature Gran # (Auto) 0.05 H (0.001-0.031) x10^3u/L Absolute Lymphs (auto) 1.46 (1.18-3.74) x10^3/uL Absolute Monos (auto) 0.52 (0.24-0.86) x10^3/uL Absolute Nucleated RBC 0.00 (0.00-0.012) x10^3u/L Lymphocytes % 22.0 (19.3-51.7) % Monocytes % 7.8 (4.7-12.5) % Eosinophils % 4.8 (0.7-5.8) % Basophils % 0.6 (0.1-1.2) % Absolute Granulocytes 4.26 (1.56-6.13) x10^3/uL Basophils # 0.04 (0.01-0.08) x10^3/uL Sodium 139 (135-145) mmol/L Potassium 3.7 (3.5-5.1) mmol/L Chloride 108 H (98-107) mmol/L Carbon Dioxide 24 (22-30) mmol/L Anion Gap 10.8 (5-15) MEQ/L BUN 12 (7-17) mg/dL Creatinine 0.65 (0.52-1.04) mg/dL Estimated GFR 117.0 ML/MIN Glucose 82 (74-106) mg/dL Uric Acid 6.7 H (2.6-6.0) mg/dL Calcium 6.8 L (8.4-10.2) mg/dL Magnesium (1.6-2.3) mg/dL Total Bilirubin 0.40 (0.2-1.3) mg/dL AST 35 (14-36) U/L ALT 41 H (0-35) U/L Alkaline Phosphatase 118 (38-126) U/L Lactate Dehydrogenase (120-246) U/L Serum Total Protein 6.2 L (6.3-8.2) g/dL Albumin 3.3 L (3.5-5.0) g/dL Ur Random Creatinine mg/dl U Random Total Protein (<12) mg/dl U [place] Prot/Creat Ratio (0.0-0.15) mg/mg Medications: Medications Generic Name Dose Route Start Last Admin Trade Name Freq PRN Reason Stop Dose Admin Acetaminophen 1,000 mg 06/07/25 22:02 06/08/25 07:54 Acetaminophen 500 Mg Tablet PO 07/07/25 22:01 1,000 mg Q6H PRN PRN Administration HEADACHE Ibuprofen 800 mg 06/08/25 10:00 06/08/25 17:08 Ibuprofen 400 Mg Tablet PO 07/08/25 09:59 800 mg Q6H PRN PRN Administration MODERATE PAIN Labetalol HCl 200 mg 06/07/25 22:30 06/08/25 23:34 Labetalol Hcl 100 Mg Tablet PO 07/07/25 22:29 Not Given BID RENATE Lisinopril 10 mg 06/08/25 10:00 06/08/25 16:09 Lisinopril 10 Mg Tablet PO 07/08/25 09:59 10 mg DAILY RENATE Administration Nifedipine 30 mg 06/09/25 10:00 06/08/25 21:11 Nifedipine Xl 30 Mg Tablet.Sa PO 07/09/25 09:59 30 mg DAILY RENATE Administration Discontinued Medications Generic Name Dose Route Start Last Admin Trade Name Roqueq PRN Reason Stop Dose Admin Lactated Ringer's 1,000 mls @ 75 mls/hr 06/07/25 21:00 06/08/25 10:25 Lactated Ringers IV 07/07/25 20:59 75 mls/hr .[id number] RENATE Administration Magnesium Sulfate 1,000 mls @ 50 mls/hr 06/07/25 21:00 06/08/25 15:34 Magnesium Sulfate 40 Gm/1000 Ml H2o Premix IV 07/07/25 20:59 50 mls/hr .Q20H RENATE Administration Nifedipine Confirm 06/08/25 21:05 Nifedipine Xl 30 Mg Tablet.Sa Administered 06/08/25 21:06 Dose 30 mg PO .STK-MED ONE Assessment/Plan (1) Pre-eclampsia, Current Visit: Yes Status: Acute Assessment & Plan: clinically looks good today,elevated BP overnight being managed by Dr Milton, nursing will report to him Code(s): O14.95 - UNSPECIFIED PRE-ECLAMPSIA, COMPLICATING THE PUERPERIUM (2) Chronic hypertension in obstetric context Current Visit: Yes Status: Acute Assessment & Plan: currently receiving lisinopril 10mg daily and procardia xl30mg daily, either could be titrated up if needed. Code(s): O10.919 - UNSP PRE-EXISTING HTN COMP , UNSP TRIMESTER
[2025-06-09] MEDS ORDERED: TRANDATE 100 MG/20 ML MDV FOR DRIP IV ONE (17:12)
[2025-06-09] MEDS: TRANDATE 100MG/20 ML MDV IV ONE ×2 (17:20→20:10)
[2025-06-09] MEDS ORDERED: Adalat CC 30 MG TABLET PO ONE (17:48)
[2025-06-09] MEDS: Adalat CC 30 MG TABLET PO ONE (17:50)
[2025-06-09] MEDS ORDERED: SUBLIMAZE 100 MCG/2 ML ONE (19:24)
[2025-06-09] MEDS: SUBLIMAZE 100 MCG/2 ML IV PRN (19:31)
[2025-06-09 19:41] LABS: BASOPHIL % 0.9 % (0.1-1.2); Basophil (Absolute #) 0.06 x10^3/uL (0.01-0.08); Eosinophil (Absolute #) 0.39 x10^3/uL (0.04-0.36); Hematocrit 36.5 % (34.1-44.9); Hemoglobin 11.8 g/dL (11.2-15.7); IMMATURE GRAN # 0.06 x10^3u/L (0.001-0.031); IMMATURE GRAN % 0.9 % (0.001-0.429); Lymphocyte (Absolute #) 1.58 x10^3/uL (1.18-3.74); Mean Corpuscular Hemoglobin 29.0 pg (25.6-32.2); Mean Corpuscular Hgb Concent. 32.3 g/dL (32.2-35.5); Monocyte (Absolute #) 0.62 x10^3/uL (0.24-0.86); NUCLEATED RBC # 0.00 x10^3u/L (0.00-0.012); NUCLEATED RBC % 0.0 % (0.00-0.2); Platelet Count 247 x10^3/uL (182-369); Red Blood Count 4.07 x10^6/uL (3.93-5.22); White Blood Count 6.8 x10^3/uL (3.98-10.04)
[2025-06-09 19:55] LABS: Carbon Dioxide 24.0 mmol/L (22-30); Creatinine 1 0.68 mg/dL (0.52-1.04); EST GLOMERULAR FILTRATION RATE 115.7 ML/MIN; Glucose 92.0 mg/dL (74-106); Potassium 4.0 mmol/L (3.5-5.1); SGOT/AST 44.0 U/L (14-36); SGPT/ALT 57.0 U/L (0-35); Total Protein 7.0 g/dL (6.3-8.2); Uric Acid 6.3 mg/dL (2.6-6.0)
[2025-06-09 19:56] LABS: Calcium 8.7 mg/dL (8.4-10.2)
[2025-06-09 20:11] LABS: Creatinine, Urine Random 25.6 mg/dl; Protein Creatinine Ratio, Ran. 1.09 mg/mg (0.0-0.15); TP, Urine Random 28.0 mg/dl (<12)
[2025-06-09] MEDS ORDERED: TRANDATE 20 MG/4 ML SYRINGE IV ONE (20:14)
[2025-06-09] MEDS ORDERED: Magnesium Sulfate 40 Gm/1000 Ml H2O Premix*** 1,000 ML IV ONE (20:32)
[2025-06-09] MEDS ORDERED: Lactated Ringers 1,000 ML IV ONE (20:32)
[2025-06-09] MEDS: Magnesium Sulfate 40 Gm/1000 Ml H2O Premix*** 1,000 ML IV SCH (20:34)
[2025-06-09] MEDS: Lactated Ringers 1,000 ML IV SCH (20:34)
[2025-06-09] MEDS ORDERED: Cyclobenzaprine 10 MG ONE (21:25)
[2025-06-09] MEDS: Cyclobenzaprine 10 MG PO ONE (21:26)
[2025-06-09 22:32] VITALS: RESP 16; TEMP 98.3
[2025-06-09 23:24] VITALS: O2SAT 99
[2025-06-09 23:26] VITALS: BP 145/90; PULSE 81
== END 2025-06-09 23:12 ==
LOC: OB 20:43
PROVIDERS: ADMIT Obstetrics & Gynecology; ATTEND Obstetrics & Gynecology
DX: Z39.2 Encounter for routine postpartum follow-up (principal)
CPT/HCPCS: 36415; 80053; 82570; 83615; 83735; 84156; 84550; 85025; 85027; G0378; G0379